=== PATIENT | female | born 1935 | race Caucasian/White ===

== ENCOUNTER 2018-06-17 18:34 | Emergency (ER) | payer OTHER, BC ==
--- NOTE | 2018-06-17 18:47 | PDOC ---
Rapid Medical Evaluation Time Seen by Provider: 06/17/18 18:40 Medical Evaluation: 06/17/18 18:40 I have performed a brief in-person evaluation of this patient. The patient presents with a chief complaint of: Hyperglycemia this am (400s) at home, reports no symptoms per pt. Usually does not check her BG at home per daughter, unclear why pt checked it today. Sent from for management. Has h/o IDDM, compliant w/ meds per pt, pulm HTN (on 2L home 02), HLD, CAD w/ stents. Denies h/o admission for DM or complications related to. PMD is at [facility] Pertinent physical exam findings:Stable I have ordered the following:labs The patient will proceed to the ED for further evaluation. Discharge Disposition - Diagnosis Hyperglycemia - Referrals - Patient Instructions - Post Discharge Activity
[2018-06-17 18:51] VITALS: BP 129/78; PULSE 59; TEMP 98.4; BMI 30.9
[2018-06-17 20:05] LABS: BASO % 1.3 % (0-2.0); EOS % 2.1 % (0-4.5); HEMATOCRIT 31.4 % (32.4-45.2); HEMOGLOBIN 10.9 GM/dL (10.7-15.3); LYMPH % 17.4 % (8-40); MCH 30.8 pg (25.7-33.7); MCHC 34.6 g/dl (32.0-36.0); MEAN CELL VOLUME 89.1 fl (80-96); MEAN PLT VOLUME 6.8 fl (7.5-11.1); MONO % 6.5 % (3.8-10.2); NEUT % 72.7 % (42.8-82.8); PLATELET COUNT 133 K/MM3 (134-434); RBC 3.52 M/mm3 (3.60-5.2); RDW 14.8 % (11.6-15.6)
[2018-06-17 20:39] LABS: ALBUMIN 3.9 g/dl (3.4-5.0); ANION GAP 10 MMOL/L (8-16); BILIRUBIN,TOTAL 0.8 mg/dL (0.2-1.0); BLOOD UREA NITROGEN 13 mg/dL (7-18); CALCIUM 9.6 mg/dL (8.5-10.1); CHLORIDE 98 mmol/L (98-107); CO2 30 mmol/L (21-32); CREATININE 1.2 mg/dL (0.55-1.3); GLUCOSE,RANDOM 279 mg/dL (74-106); POTASSIUM 3.4 mmol/L (3.5-5.1); SGOT/AST 24 U/L (15-37); SGPT/ALT 25 U/L (13-61); SODIUM 138 mmol/L (136-145); TOT PROT 7.5 g/dl (6.4-8.2)
[2018-06-17 20:40] LABS: ALK PHOS 128 U/L (45-117)
--- NOTE | 2018-06-17 21:26 | PDOC ---
Attending Attestation - Resident Resident Name: [email or web address] - ED Attending Attestation I have performed the following: I have examined & evaluated the patient, The case was reviewed & discussed with the resident, I agree w/resident's findings & plan, Exceptions are as noted - HPI HPI: 06/17/18 21:41 83y F hx of IDDM, persents with complaint of hyperglycemia. Per pt, she called her doctor for refill of insulin an dthey told her to check blood sugar and it was in the 400s and pt presented for evalutaion. pt notes she is otherwise asypmtmatic and denies any fever/chills, cp, sob, cough, abd pain, back pain, headache, dizziness, frequency, dysuria. Patient denies any complaints currently GENERAL: The patient is awake, alert, and fully oriented, Nontoxic - in no acute distress. HEAD: Normocephalic, atraumatic. EYES: extraocular movements intact, sclera anicteric, conjunctiva clear. ENT: Normal voice, Moist mucous membranes. NECK: Normal range of motion, supple LUNGS: Breath sounds equal, clear to auscultation bilaterally. No wheezes, no rhonchi, no rales. HEART: Regular rate and rhythm, normal S1 and S2 without murmur, rub or gallop. ABDOMEN: Soft, nontender, No guarding, no rebound. . No CVA tenderness EXTREMITIES: Normal range of motion, no edema. NEUROLOGICAL: No facial assymetry, Normal speech, moving all 4 extrmities spontaneously and symmetrically PSYCH: Normal mood, normal affect. SKIN: Warm, Dry, normal turgor, Patient's blood work was reviewed it is unremarkable her blood sugar is reasonable at 267 No clinical signs of DKA as pt is otherwise asymptmoatic and blood sugar is under control, will defer further workup. Will verify the patient's insulin and will refill the rx patient until she follow-up with a primary care doctor leigh is bedside and agrees with managemnt - Physicial Exam PE: 06/19/18 20:11 see above - Medical Decision Making 06/19/18 20:11 see above
[2018-06-17 21:41] LABS: URINE APPEARANCE SLCLOUDY; URINE BILIRUBIN NEGATIVE (<2.0 mg/dL); URINE COLOR YELLOW; URINE GLUCOSE (UA) 3+ (NEGATIVE); URINE KETONE NEGATIVE (NEGATIVE); URINE LEUK ESTERASE TRACE (NEGATIVE); URINE NITRITE NEGATIVE (NEGATIVE); URINE PROTEIN 1+ (NEGATIVE); URINE UROBILINOGEN NEGATIVE mg/dL (0.2-1.0)
[2018-06-17 21:42] LABS: EPI CELLS RARE /HPF (FEW); URINE HYALINE CAST 4 /lpf; URINE MUCUS RARE
--- NOTE | 2018-06-17 22:19 | PDOC ---
History of Present Illness - General Chief Complaint: Blood Sugar Problem Stated Complaint: ALTERED MENTAL STATE Time Seen by Provider: 06/17/18 18:40 - History of Present Illness Initial Comments: 06/17/18 22:37 83 yo F w a hx of IDDM, pulm HTN (on 2L home 02), HLD, CAD w/ stents was sent here by her pcp bc her blood sugar was 468. She measured her glucose at home after she ate lunch today. She is completely asymptomatic. She sates that she has not been good about taking her meds and following up with her diabetes doctors recently. She endorses polyuria but denies polydipsia. She has no abdominal pain She denies any recent fevers, chills, or infections. She denies any chest pain, SOB, or difficulty breathing. She denies any dysuria, frequency, or urgency. Past History - Past Medical History Allergies/Adverse Reactions: Allergies Allergy/AdvReac Type Severity Reaction Status Date / Time meperidine [From Demerol] Allergy Verified 06/17/18 18:44 Home Medications: Ambulatory Orders Insulin Lispro [Humalog Kwikpen U-100] 5 unit SQ TID 7 Days #1 [email or web address] Cardiac Disorders: Yes COPD: No Other medical history: 2 CARDIAC STENTS, PULMONARY HYPERTENSION ON OXYGEN 2L - Suicide/Smoking/Psychosocial Hx Smoking History: Never smoked Review of Systems - Review of Systems Comments:: 06/17/18 22:41 CONSTITUTIONAL: Absent: fever, chills, diaphoresis, generalized weakness, malaise, loss of appetite HEENT: Absent: rhinorrhea, nasal congestion, throat pain, throat swelling, difficulty swallowing, mouth swelling, ear pain, eye pain, visual Changes CARDIOVASCULAR: Absent: chest pain, syncope, palpitations, irregular heart rate, lightheadedness , peripheral edema RESPIRATORY: Absent: cough, shortness of breath, dyspnea with exertion, orthopnea, wheezing, stridor, hemoptysis GASTROINTESTINAL: Absent: abdominal pain, abdominal distension, nausea, vomiting, diarrhea, constipation, melena, hematochezia GENITOURINARY: Positive: polyuria Absent: dysuria, frequency, urgency, hesitancy, hematuria, flank pain, genital pain MUSCULOSKELETAL: Absent: myalgia, arthralgia, joint swelling SKIN: Absent: rash, itching, pallor HEMATOLOGIC/IMMUNOLOGIC: Absent: easy bleeding, easy bruising, lymphadenopathy, frequent infections ENDOCRINE: Absent: unexplained weight gain, unexplained weight loss, heat intolerance, cold intolerance NEUROLOGIC: Absent: headache, focal weakness or paresthesias, dizziness, unsteady gait, seizure, mental status changes, bladder or bowel incontinence PSYCHIATRIC: Absent: anxiety, depression, suicidal or homicidal ideation, hallucinations. 06/17/18 22:43 *Physical Exam - Vital Signs Last Vital Signs Temp Pulse Resp BP Pulse Ox 98.4 F 59 L 16 129/78 100 06/17/18 18:44 06/17/18 18:44 06/17/18 18:44 06/17/18 18:44 06/17/18 20:50 - Physical Exam Comments: 06/17/18 22:44 GENERAL: Well developed, well nourished. Awake and alert. No acute distress. HEENT: Normocephalic, atraumatic. PERRLA, EOMI. No conjunctival pallor. Sclera are non- icteric. Moist mucous membranes. Oropharynx is clear. NECK: Supple. Full ROM. No JVD. No thyromegaly. No lymphadenopathy. CARDIOVASCULAR: Regular rate and rhythm. No murmurs, rubs, or gallops. Distal pulses are 2+ and symmetric. PULMONARY: No evidence of respiratory distress. Lungs clear to auscultation bilaterally. No wheezing, rales or rhonchi. ABDOMINAL: Soft. Non-tender. Non-distended. No rebound or guarding. No organomegaly. Normoactive bowel sounds. MUSCULOSKELETAL Normal range of motion at all joints. No bony deformities or tenderness. No CVA tenderness. EXTREMITIES: No cyanosis. No clubbing. No edema. No calf tenderness. SKIN: Warm and dry. Normal capillary refill. No rashes. No jaundice. NEUROLOGICAL: Alert, awake, appropriate. Cranial nerves 2-12 intact. No deficits to light touch in face, upper extremities and lower extremities. No motor deficits in the in face, upper extremities and lower extremities. Normoreflexic in the upper and lower extremities. Normal speech. Toes are down-going bilaterally. Gait is normal without ataxia. PSYCHIATRIC: Cooperative. Good eye contact. Appropriate mood and affect. ED Treatment Course - LABORATORY CBC & Chemistry Diagram: 06/17/18 19:55 06/17/18 19:55 - ADDITIONAL ORDERS Additional order review: Laboratory Results 06/17/18 06/17/18 06/17/18 21:33 20:41 19:55 Sodium 138 Potassium 3.4 L Chloride 98 Carbon Dioxide 30 Anion Gap 10 BUN 13 Creatinine 1.2 Creat Clearance w eGFR 43.12 POC Glucometer [phone] Random Glucose 279 H Calcium 9.6 Total Bilirubin 0.8 AST 24 ALT 25 Alkaline Phosphatase 128 H Total Protein 7.5 Albumin 3.9 Urine Color Yellow Urine Appearance Slcloudy Urine pH 5.0 Ur Specific [place] 1.014 Urine Protein 1+ H Urine Glucose (UA) 3+ H Urine Ketones Negative Urine Blood 1+ H Urine Nitrite Negative Urine Bilirubin Negative Urine Urobilinogen Negative Ur Leukocyte Esterase Trace Urine WBC (Auto) 5 Urine RBC (Auto) 2 Ur Epithelial Cells Rare Hyaline Casts 4 Urine Mucus Rare 06/17/18 06/17/18 20:41 19:55 RBC 3.52 L MCV 89.1 MCHC 34.6 RDW 14.8 MPV 6.8 L Neutrophils % 72.7 Lymphocytes % 17.4 Monocytes % 6.5 Eosinophils % 2.1 Basophils % 1.3 POC Glucometer [phone] Medical Decision Making - Medical Decision Making 06/17/18 22:47 83 yo F w a hx of IDDM, pulm HTN (on 2L home ), HLD, CAD w/ stents was sent here by her pcp bc her blood sugar was 468. In the ED her POC was 268. She is completely asymptomatic. CBC, cmp, ua was unremarkable. no wbc elevation. no anion gap, no acidosis, no urinary ketones. Nothing to suggest DKA or HHNS. We refilled her humalog. She is going to follow up with her paste mixing supervisor on Wednesday. *DC/Admit/Observation/Transfer Diagnosis at time of Disposition: Hyperglycemia - Discharge Dispostion Disposition: HOME Condition at time of disposition: Improved Decision to Admit order: No - Prescriptions Prescriptions: Insulin Lispro [Humalog Kwikpen U-100] 5 unit SQ TID 7 Days #1 insuln.pen - Referrals Referrals: Francesco Marmolejo MD [Staff Physician] - - Patient Instructions Additional Instructions: You came into the ER because your sugar was high. It lowered to a normal level in the ED. Please goto your pharmacy and brain picker the insulin we sent there. Make sure you follow up with your paste mixing supervisor in the next 3 to 5 days to get better control of your sugar. Come back to the emergency room if you get a fever, have bad abdominal pain, start vomiting, have difficulty breathing or have any other concerns. Print Language: ESTONIAN - Post Discharge Activity
== END 2018-06-17 22:25 | disposition home or self-care (01) ==
LOC: JER 18:34
DX: E11.65 Type 2 diabetes mellitus with hyperglycemia (principal); I10 Essential (primary) hypertension; E78.5 Hyperlipidemia, unspecified; I25.10 Atherosclerotic heart disease of native coronary artery without angina pectoris; Z95.5 Presence of coronary angioplasty implant and graft
CPT/HCPCS: 36415; 80053; 81003; 81015; 82962; 85025; 99282-25

== ENCOUNTER 2021-10-26 22:38 | Inpatient (IN) | payer OTHER ==
[2021-10-26 23:27] LABS: BASO % 1.2 % (0-2.0); EOS % 2.2 % (0-4.5); HEMATOCRIT 30.1 % (32.4-45.2); MCH 28.2 pg (25.7-33.7); MCHC 33.3 g/dl (32.0-36.0); MEAN CELL VOLUME 84.5 fl (80-96); MEAN PLT VOLUME 6.8 fl (7.5-11.1); MONO % 8.1 % (3.8-10.2); NEUT % 68.5 % (42.8-82.8); PLATELET COUNT 131 10^3/uL (134-434); RBC 3.56 M/mm3 (3.60-5.2); RDW 16.5 % (11.6-15.6); WHITE BLOOD COUNT 4.2 K/mm3 (4.0-10.0)
[2021-10-26 23:34] LABS: INR 1.17 (0.83-1.09); PROTHROMBIN TIME (PATIENT) 13.5 SEC (9.7-13.0)
[2021-10-26 23:36] LABS: ACTIVATED PTT 29.5 SECONDS (25.2-36.5)
[2021-10-26 23:50] LABS: ALBUMIN 3.7 g/dl (3.4-5.0); CALCIUM 9.6 mg/dL (8.5-10.1)
[2021-10-26 23:54] LABS: CREATININE 1.3 mg/dL (0.55-1.3)
[2021-10-26 23:55] LABS: TOT PROT 6.7 g/dl (6.4-8.2)
[2021-10-27 00:09] LABS: N-TERMINAL BNP 689.6 pg/ml (5-450)
[2021-10-27 02:15] LABS: EPI CELLS 13 /uL (0-25.1); HYALINE CASTS 1 /uL (0-3.1); PH,URINE 5.5 (5.0-8.0); URINE APPEARANCE CLEAR; URINE BACTERIA 259 /uL (0-1359); URINE BILIRUBIN NEGATIVE (NEGATIVE); URINE COLOR YELLOW; URINE GLUCOSE (UA) NEGATIVE (NEGATIVE); URINE KETONE NEGATIVE (NEGATIVE); URINE LEUK ESTERASE TRACE (NEGATIVE); URINE NITRITE NEGATIVE (NEGATIVE); URINE PROTEIN 1+ (NEGATIVE); URINE RBC 13 /uL (0-23.9); URINE WBC 46 /uL (0-25.8)
[2021-10-27] MEDS ORDERED: CEFTRIAXONE 1 GM in DEXTROSE 5%-WATER - 100 ML IVPB ONE (03:43)
[2021-10-27] MEDS ORDERED: CEFTRIAXONE 1 GM/50 ML BAG ONE (03:52)
[2021-10-27] MEDS ORDERED: HEPARIN NA (PORCINE) 5,000 UNITS/ML 1ML VIAL ONE (06:06)
[2021-10-27] MEDS: HEPARIN NA (PORCINE) 5,000 UNITS/ML 1ML VIAL SQ SCH ×3 (06:13→21:32)
[2021-10-27] MEDS ORDERED: FUROSEMIDE 40 MG/4 ML INJECTABLE VIAL IVPUSH ONE ×2 (06:40→07:00)
[2021-10-27] MEDS ORDERED: metFORMIN HCL 500 MG TABLET (FP) ONE (07:35)
[2021-10-27] MEDS ORDERED: FUROSEMIDE 40 MG/4 ML INJECTABLE VIAL ONE (07:36)
[2021-10-27 08:02] LABS: HEMOGLOBIN 9.6 GM/dL (10.7-15.3); MCH 28.2 pg (25.7-33.7); MCHC 33.3 g/dl (32.0-36.0); MEAN CELL VOLUME 84.8 fl (80-96); MEAN PLT VOLUME 7.4 fl (7.5-11.1); PLATELET COUNT 112 10^3/uL (134-434); RBC 3.41 M/mm3 (3.60-5.2); RDW 16.1 % (11.6-15.6); WHITE BLOOD COUNT 3.2 K/mm3 (4.0-10.0)
[2021-10-27 08:25] LABS: CALCIUM 9.7 mg/dL (8.5-10.1)
[2021-10-27 08:26] LABS: BLOOD UREA NITROGEN 15.5 mg/dL (7-18)
[2021-10-27 08:29] LABS: CREATININE 1.2 mg/dL (0.55-1.3)
[2021-10-27] MEDS ORDERED: CARVEDILOL 3.125 MG TABLET (FP) ONE (08:50)
[2021-10-27] MEDS ORDERED: ASPIRIN COATED 81 MG TABLET.EC ONE (08:50)
[2021-10-27] MEDS ORDERED: dilTIAZem HCL 60 MG TABLET ONE (08:50)
[2021-10-27] MEDS ORDERED: FAMOTIDINE 20 MG TABLET ONE (08:50)
[2021-10-27] MEDS ORDERED: SPIRONOLACTONE 25 MG TABLET ONE (08:51)
[2021-10-27] MEDS ORDERED: PANTOPRAZOLE SODIUM 40 MG VIAL ONE (10:15)
[2021-10-27] MEDS: PANTOPRAZOLE SODIUM 40 MG VIAL IVPUSH SCH (10:30)
[2021-10-27] MEDS: ASPIRIN COATED 81 MG TABLET.EC PO SCH (10:31)
[2021-10-27] MEDS: CARVEDILOL 6.25 MG TABLET (FP) PO SCH ×2 (10:31→21:32)
[2021-10-27] MEDS: FAMOTIDINE 20 MG TABLET PO SCH (10:31)
[2021-10-27] MEDS: INSULIN (LEVEMIR) 100 UNITS/ML UNITS SQ SCH (10:31)
[2021-10-27] MEDS: SPIRONOLACTONE 25 MG TABLET PO SCH (10:31)
[2021-10-27] MEDS: INSULIN (NOVOLOG) ASPART 100 UNITS/ML 10ML VIAL SQ SCH ×3 (10:31→17:06)
[2021-10-27] MEDS: SILDENAFIL CITRATE 20 MG TAB PO SCH ×2 (14:29→21:32)
[2021-10-27 16:49] VITALS: BMI 27.1
[2021-10-27] MEDS: ROSUVASTATIN CA 10 MG TABLET PO SCH (21:32)
[2021-10-28] MEDS: HEPARIN NA (PORCINE) 5,000 UNITS/ML 1ML VIAL SQ SCH ×3 (06:22→21:41)
[2021-10-28] MEDS: SILDENAFIL CITRATE 20 MG TAB PO SCH ×3 (06:22→21:41)
[2021-10-28] MEDS: INSULIN (LEVEMIR) 100 UNITS/ML UNITS SQ SCH (06:31)
[2021-10-28] MEDS: INSULIN (NOVOLOG) ASPART 100 UNITS/ML 10ML VIAL SQ SCH ×3 (06:32→16:08)
[2021-10-28] MEDS ORDERED: CEFTRIAXONE 1 GM in DEXTROSE 5%-WATER - 50 ML IVPB SCH (10:00)
[2021-10-28] MEDS: FUROSEMIDE 40 MG/4 ML INJECTABLE VIAL IVPUSH SCH (10:30)
[2021-10-28] MEDS: SPIRONOLACTONE 25 MG TABLET PO SCH (10:30)
[2021-10-28] MEDS: FAMOTIDINE 20 MG TABLET PO SCH (10:30)
[2021-10-28] MEDS: CARVEDILOL 6.25 MG TABLET (FP) PO SCH ×2 (10:31→21:40)
[2021-10-28] MEDS: PANTOPRAZOLE SODIUM 40 MG VIAL IVPUSH SCH (10:31)
[2021-10-28] MEDS: ASPIRIN COATED 81 MG TABLET.EC PO SCH (10:31)
[2021-10-28] MEDS: CEPHALEXIN MONOHYDRATE 500 MG CAPSULE (UD) PO SCH ×2 (10:31→21:40)
[2021-10-28 11:44] LABS: BASO % 0.9 % (0-2.0); EOS % 2.5 % (0-4.5); HEMATOCRIT 29.5 % (32.4-45.2); HEMOGLOBIN 10.1 GM/dL (10.7-15.3); MCH 28.8 pg (25.7-33.7); MCHC 34.1 g/dl (32.0-36.0); MEAN CELL VOLUME 84.5 fl (80-96); MEAN PLT VOLUME 7.1 fl (7.5-11.1); MONO % 8.9 % (3.8-10.2); NEUT % 69.7 % (42.8-82.8); PLATELET COUNT 114 10^3/uL (134-434); RBC 3.49 M/mm3 (3.60-5.2); RDW 16.2 % (11.6-15.6); WHITE BLOOD COUNT 3.6 K/mm3 (4.0-10.0)
[2021-10-28 12:23] LABS: ALBUMIN 3.5 g/dl (3.4-5.0); BILIRUBIN,TOTAL 0.8 mg/dL (0.2-1); BLOOD UREA NITROGEN 18.6 mg/dL (7-18); CALCIUM 9.3 mg/dL (8.5-10.1); CREATININE 1.3 mg/dL (0.55-1.3); TOT PROT 6.6 g/dl (6.4-8.2)
[2021-10-28] MEDS: ROSUVASTATIN CA 10 MG TABLET PO SCH (21:40)
[2021-10-29] MEDS: HEPARIN NA (PORCINE) 5,000 UNITS/ML 1ML VIAL SQ SCH ×2 (05:45→13:39)
[2021-10-29] MEDS: SILDENAFIL CITRATE 20 MG TAB PO SCH ×2 (05:45→13:39)
[2021-10-29] MEDS: INSULIN (NOVOLOG) ASPART 100 UNITS/ML 10ML VIAL SQ SCH ×3 (06:01→17:30)
[2021-10-29] MEDS: INSULIN (LEVEMIR) 100 UNITS/ML UNITS SQ SCH (06:01)
[2021-10-29 08:35] LABS: HEMATOCRIT 31.6 % (32.4-45.2); HEMOGLOBIN 10.5 GM/dL (10.7-15.3); MCH 28.3 pg (25.7-33.7); MCHC 33.3 g/dl (32.0-36.0); MEAN PLT VOLUME 7.2 fl (7.5-11.1); PLATELET COUNT 136 10^3/uL (134-434); RBC 3.72 M/mm3 (3.60-5.2); RDW 16.5 % (11.6-15.6); WHITE BLOOD COUNT 3.6 K/mm3 (4.0-10.0)
[2021-10-29 08:55] LABS: BLOOD UREA NITROGEN 18.8 mg/dL (7-18); CALCIUM 9.5 mg/dL (8.5-10.1)
[2021-10-29 08:59] LABS: CREATININE 1.3 mg/dL (0.55-1.3)
[2021-10-29] MEDS: FAMOTIDINE 20 MG TABLET PO SCH (10:01)
[2021-10-29] MEDS: SPIRONOLACTONE 25 MG TABLET PO SCH (10:01)
[2021-10-29] MEDS: ASPIRIN COATED 81 MG TABLET.EC PO SCH (10:01)
[2021-10-29] MEDS: CARVEDILOL 6.25 MG TABLET (FP) PO SCH (10:02)
[2021-10-29] MEDS: CEPHALEXIN MONOHYDRATE 500 MG CAPSULE (UD) PO SCH (10:02)
[2021-10-29] MEDS: FUROSEMIDE 40 MG/4 ML INJECTABLE VIAL IVPUSH SCH (10:10)
[2021-10-29] MEDS: PANTOPRAZOLE SODIUM 40 MG VIAL IVPUSH SCH (10:10)
[2021-10-29] MEDS ORDERED: POTASSIUM CHLORIDE TABS 20 MEQ TABLET.ER (FP) PO ONE (10:43)
[2021-10-29] MEDS ORDERED: FUROSEMIDE 40 MG TABLET (FP) PO ONE (11:05)
[2021-10-29 14:42] VITALS: TEMP 98.1
[2021-10-29 14:58] VITALS: BP 108/47; PULSE 73
== END 2021-10-29 18:00 | disposition home or self-care (01) | DRG 291 ==
LOC: JER 22:38 → JERBED 10-27 00:14 → J6S 10-27 12:01
PROVIDERS: ADMIT Internal Medicine
DX: I11.0 Hypertensive heart disease with heart failure (principal); I50.33 Acute on chronic diastolic (congestive) heart failure; D61.818 Other pancytopenia; N39.0 Urinary tract infection, site not specified; I27.20 Pulmonary hypertension, unspecified; K21.9 Gastro-esophageal reflux disease without esophagitis; E78.5 Hyperlipidemia, unspecified; F03.90 Unspecified dementia, unspecified severity, without behavioral disturbance, psychotic disturbance, mood disturbance, and anxiety; I44.0 Atrioventricular block, first degree; R62.7 Adult failure to thrive; Z68.27 Body mass index [BMI] 27.0-27.9, adult; E11.65 Type 2 diabetes mellitus with hyperglycemia
CPT/HCPCS: 36415; 71045-TC-FY; 80048; 80053; 81003; 82550; 82607; 82962; 83880; 84443; 84484; 85025; 85027; 85610; 85730; 86780; 86850; 86870; 86900; 86901; 86902; 87086; 93005; 93010; 93306-TC; 97116-GP; 97162-GP; 99285-25; C9803; J1644; U0003; U0005

== ENCOUNTER 2022-01-27 05:33 | Inpatient (IN) | payer OTHER ==
[2022-01-27 05:43] VITALS: BMI 25.7
[2022-01-27 07:24] LABS: BASO % 0.8 % (0-2.0); EOS % 5.4 % (0-4.5); HEMATOCRIT 28.3 % (32.4-45.2); HEMOGLOBIN 9.3 GM/dL (10.7-15.3); LYMPH % 19.4 % (8-40); MCH 28.2 pg (25.7-33.7); MCHC 32.7 g/dl (32.0-36.0); MEAN CELL VOLUME 86.2 fl (80-96); MEAN PLT VOLUME 7.3 fl (7.5-11.1); MONO % 7.7 % (3.8-10.2); NEUT % 66.7 % (42.8-82.8); PLATELET COUNT 131 10^3/uL (134-434); RBC 3.28 M/mm3 (3.60-5.2); RDW 15.5 % (11.6-15.6); WHITE BLOOD COUNT 3.2 K/mm3 (4.0-10.0)
[2022-01-27 07:50] LABS: CHLORIDE 105 mmol/L (98-107); SODIUM 144 mmol/L (136-145)
[2022-01-27] MEDS ORDERED: POTASSIUM CHLORIDE TABS 20 MEQ TABLET.ER (FP) PO ONE ×2 (07:51→08:01)
[2022-01-27 07:52] LABS: ALBUMIN 2.9 g/dl (3.4-5.0); ANION GAP 7 MMOL/L (8-16); BLOOD UREA NITROGEN 8.1 mg/dL (7-18); CO2 32 mmol/L (21-32); GLUCOSE,RANDOM 96 mg/dL (74-106); MAGNESIUM 2.2 mg/dL (1.8-2.4)
[2022-01-27 07:55] LABS: CREATININE 0.7 mg/dL (0.55-1.3); SGOT/AST 22 U/L (15-37); SGPT/ALT 13 U/L (13-61)
[2022-01-27 07:57] LABS: BILIRUBIN,TOTAL 0.9 mg/dL (0.2-1)
[2022-01-27 07:58] LABS: ALK PHOS 159 U/L (45-117)
[2022-01-27 08:00] LABS: N-TERMINAL BNP 1752.3 pg/ml (5-450)
[2022-01-27] MEDS ORDERED: ASPIRIN 81 MG CHEWABLE TABLETS PO ONE (08:10)
[2022-01-27] MEDS ORDERED: FUROSEMIDE 40 MG/4 ML INJECTABLE VIAL IVPUSH ONE (08:12)
[2022-01-27] MEDS ORDERED: ASPIRIN 81 MG CHEWABLE TABLETS ONE (08:23)
[2022-01-27] MEDS ORDERED: FUROSEMIDE 40 MG/4 ML INJECTABLE VIAL ONE (08:23)
[2022-01-27 08:50] LABS: EPI CELLS >36 /uL (0-25.1); HYALINE CASTS 2 /uL (0-3.1); PH,URINE 5.5 (5.0-8.0); URINE APPEARANCE CLOUDY; URINE BACTERIA 349 /uL (0-1359); URINE BILIRUBIN 1+ (NEGATIVE); URINE COLOR DK YELLOW; URINE GLUCOSE (UA) NEGATIVE (NEGATIVE); URINE KETONE TRACE (NEGATIVE); URINE LEUK ESTERASE NEGATIVE (NEGATIVE); URINE NITRITE NEGATIVE (NEGATIVE); URINE PROTEIN 2+ (NEGATIVE); URINE RBC 29 /uL (0-23.9); URINE UROBILINOGEN 4.0 E.U/dl mg/dL (0.2-1.0); URINE WBC 29 /uL (0-25.8)
[2022-01-27] MEDS: INSULIN SLIDING SCALE (NOVOLOG) 1 VIAL SQ SCH ×3 (11:21→22:49)
[2022-01-27] MEDS: SILDENAFIL CITRATE 20 MG TAB PO SCH ×2 (14:46→22:33)
[2022-01-27] MEDS: ROSUVASTATIN CA 10 MG TABLET PO SCH (22:33)
[2022-01-27] MEDS: CARVEDILOL 6.25 MG TABLET (FP) PO SCH (22:33)
[2022-01-28] MEDS: SILDENAFIL CITRATE 20 MG TAB PO SCH ×4 (06:22→22:47)
[2022-01-28] MEDS: INSULIN SLIDING SCALE (NOVOLOG) 1 VIAL SQ SCH ×4 (06:27→22:50)
[2022-01-28 07:36] LABS: HEMATOCRIT 27.6 % (32.4-45.2); HEMOGLOBIN 9.2 GM/dL (10.7-15.3); MCH 28.6 pg (25.7-33.7); MCHC 33.2 g/dl (32.0-36.0); MEAN PLT VOLUME 7.2 fl (7.5-11.1); PLATELET COUNT 119 10^3/uL (134-434); RBC 3.21 M/mm3 (3.60-5.2); RDW 15.3 % (11.6-15.6); WHITE BLOOD COUNT 2.9 K/mm3 (4.0-10.0)
[2022-01-28 08:01] LABS: ALBUMIN 2.9 g/dl (3.4-5.0); BLOOD UREA NITROGEN 8.7 mg/dL (7-18); MAGNESIUM 1.9 mg/dL (1.8-2.4)
[2022-01-28 08:04] LABS: CREATININE 0.7 mg/dL (0.55-1.3)
[2022-01-28 08:06] LABS: BILIRUBIN,TOTAL 1.1 mg/dL (0.2-1); TOT PROT 5.6 g/dl (6.4-8.2)
[2022-01-28] MEDS ORDERED: PATIENT'S OWN MEDICATION (NON-FORMULARY) (Fluticasone Propionate [Flovent Diskus] 50 MCG B IH SCH (10:00)
[2022-01-28] MEDS: ASPIRIN COATED 81 MG TABLET.EC PO SCH (10:10)
[2022-01-28] MEDS: SPIRONOLACTONE 25 MG TABLET PO SCH (10:10)
[2022-01-28] MEDS: CARVEDILOL 6.25 MG TABLET (FP) PO SCH ×2 (10:10→22:47)
[2022-01-28] MEDS: POTASSIUM CHLORIDE TABS 10 MEQ TABLET.ER (FP) PO SCH (10:10)
[2022-01-28] MEDS: FAMOTIDINE 20 MG TABLET PO SCH (10:11)
[2022-01-28] MEDS: ENOXAPARIN NA (PORCINE) 40 MG/0.4 ML DISP.SYRIN SQ SCH (10:11)
[2022-01-28] MEDS: FUROSEMIDE 40 MG/4 ML INJECTABLE VIAL IVPUSH SCH (10:11)
[2022-01-28] MEDS ORDERED: PIPERACILLIN/TAZOB 3.375 GM 3.375 GM in DEXTROSE 5%-WATER - 50 ML IVPB ONE (10:33)
[2022-01-28] MEDS ORDERED: PIPERACILLIN/TAZOBACTAM 3.375 GM VIAL IVPB ONE (11:34)
[2022-01-28] MEDS ORDERED: DEXTROSE 5%-WATER - 50 ML IVPB ONE (11:35)
[2022-01-28] MEDS ORDERED: ONDANSETRON 4 MG/2 ML VIAL IVPUSH ONE (17:15)
[2022-01-28] MEDS: ROSUVASTATIN CA 10 MG TABLET PO SCH (22:47)
[2022-01-29] MEDS: SILDENAFIL CITRATE 20 MG TAB PO SCH ×3 (05:22→22:15)
[2022-01-29] MEDS: INSULIN SLIDING SCALE (NOVOLOG) 1 VIAL SQ SCH ×4 (06:39→22:16)
[2022-01-29 08:14] LABS: BASO % 0.9 % (0-2.0); EOS % 5.8 % (0-4.5); HEMATOCRIT 27.7 % (32.4-45.2); HEMOGLOBIN 9.2 GM/dL (10.7-15.3); LYMPH % 21.4 % (8-40); MCH 28.3 pg (25.7-33.7); MCHC 33.1 g/dl (32.0-36.0); MEAN CELL VOLUME 85.3 fl (80-96); MEAN PLT VOLUME 7.3 fl (7.5-11.1); NEUT % 66.9 % (42.8-82.8); PLATELET COUNT 122 10^3/uL (134-434); RBC 3.25 M/mm3 (3.60-5.2); RDW 15.5 % (11.6-15.6); WHITE BLOOD COUNT 2.6 K/mm3 (4.0-10.0)
[2022-01-29 08:25] LABS: ALBUMIN 2.8 g/dl (3.4-5.0); BLOOD UREA NITROGEN 10.3 mg/dL (7-18); CALCIUM 8.4 mg/dL (8.5-10.1); MAGNESIUM 1.9 mg/dL (1.8-2.4)
[2022-01-29 08:28] LABS: CREATININE 0.9 mg/dL (0.55-1.3)
[2022-01-29 08:29] LABS: BILIRUBIN,TOTAL 1.3 mg/dL (0.2-1); TOT PROT 5.6 g/dl (6.4-8.2)
[2022-01-29] MEDS: ASPIRIN COATED 81 MG TABLET.EC PO SCH (09:55)
[2022-01-29] MEDS: POTASSIUM CHLORIDE TABS 10 MEQ TABLET.ER (FP) PO SCH (09:55)
[2022-01-29] MEDS: SPIRONOLACTONE 25 MG TABLET PO SCH (09:55)
[2022-01-29] MEDS: FUROSEMIDE 40 MG/4 ML INJECTABLE VIAL IVPUSH SCH (09:55)
[2022-01-29] MEDS: CARVEDILOL 6.25 MG TABLET (FP) PO SCH ×2 (09:55→22:15)
[2022-01-29] MEDS: ENOXAPARIN NA (PORCINE) 40 MG/0.4 ML DISP.SYRIN SQ SCH (09:55)
[2022-01-29] MEDS: FAMOTIDINE 20 MG TABLET PO SCH (09:55)
[2022-01-29] MEDS ORDERED: POTASSIUM CHLORIDE TABS 20 MEQ TABLET.ER (FP) PO ONE (18:54)
[2022-01-29] MEDS: ROSUVASTATIN CA 10 MG TABLET PO SCH (22:15)
[2022-01-30] MEDS: SILDENAFIL CITRATE 20 MG TAB PO SCH ×3 (06:01→21:21)
[2022-01-30] MEDS: INSULIN SLIDING SCALE (NOVOLOG) 1 VIAL SQ SCH ×4 (06:01→21:20)
[2022-01-30 09:08] LABS: HEMATOCRIT 27.6 % (32.4-45.2); HEMOGLOBIN 9.2 GM/dL (10.7-15.3); MCH 28.5 pg (25.7-33.7); MCHC 33.4 g/dl (32.0-36.0); MEAN CELL VOLUME 85.4 fl (80-96); MEAN PLT VOLUME 7.4 fl (7.5-11.1); PLATELET COUNT 112 10^3/uL (134-434); RBC 3.23 M/mm3 (3.60-5.2); RDW 15.2 % (11.6-15.6); WHITE BLOOD COUNT 2.7 K/mm3 (4.0-10.0)
[2022-01-30 09:23] LABS: CALCIUM 8.5 mg/dL (8.5-10.1)
[2022-01-30 09:24] LABS: ALBUMIN 2.9 g/dl (3.4-5.0); BLOOD UREA NITROGEN 13.2 mg/dL (7-18); MAGNESIUM 1.9 mg/dL (1.8-2.4)
[2022-01-30 09:27] LABS: CREATININE 0.9 mg/dL (0.55-1.3)
[2022-01-30 09:28] LABS: TOT PROT 5.7 g/dl (6.4-8.2)
[2022-01-30] MEDS: ASPIRIN COATED 81 MG TABLET.EC PO SCH (10:06)
[2022-01-30] MEDS: SPIRONOLACTONE 25 MG TABLET PO SCH (10:06)
[2022-01-30] MEDS: CARVEDILOL 6.25 MG TABLET (FP) PO SCH ×2 (10:06→21:21)
[2022-01-30] MEDS: FAMOTIDINE 20 MG TABLET PO SCH (10:06)
[2022-01-30] MEDS: FUROSEMIDE 40 MG/4 ML INJECTABLE VIAL IVPUSH SCH (10:06)
[2022-01-30] MEDS: POTASSIUM CHLORIDE TABS 10 MEQ TABLET.ER (FP) PO SCH (10:06)
[2022-01-30] MEDS: ENOXAPARIN NA (PORCINE) 40 MG/0.4 ML DISP.SYRIN SQ SCH (10:06)
[2022-01-30 11:25] LABS: ANISOCYTOSIS 0; MACROCYTOSIS 0; OVALOCYTE 1+
[2022-01-30] MEDS: ROSUVASTATIN CA 10 MG TABLET PO SCH (21:21)
[2022-01-31] MEDS: INSULIN SLIDING SCALE (NOVOLOG) 1 VIAL SQ SCH ×4 (06:01→21:33)
[2022-01-31 08:11] LABS: HEMATOCRIT 29.4 % (32.4-45.2); HEMOGLOBIN 9.7 GM/dL (10.7-15.3); MCH 28.1 pg (25.7-33.7); MCHC 32.9 g/dl (32.0-36.0); MEAN CELL VOLUME 85.6 fl (80-96); MEAN PLT VOLUME 7.4 fl (7.5-11.1); PLATELET COUNT 128 10^3/uL (134-434); RBC 3.43 M/mm3 (3.60-5.2); RDW 15.5 % (11.6-15.6); WHITE BLOOD COUNT 2.8 K/mm3 (4.0-10.0)
[2022-01-31] MEDS: FUROSEMIDE 40 MG/4 ML INJECTABLE VIAL IVPUSH SCH (11:20)
[2022-01-31] MEDS: ENOXAPARIN NA (PORCINE) 40 MG/0.4 ML DISP.SYRIN SQ SCH (11:20)
[2022-01-31] MEDS: FAMOTIDINE 20 MG TABLET PO SCH (11:20)
[2022-01-31] MEDS: POTASSIUM CHLORIDE TABS 10 MEQ TABLET.ER (FP) PO SCH (11:20)
[2022-01-31] MEDS: SPIRONOLACTONE 25 MG TABLET PO SCH (11:20)
[2022-01-31] MEDS: CARVEDILOL 6.25 MG TABLET (FP) PO SCH ×2 (11:20→21:29)
[2022-01-31] MEDS: ASPIRIN COATED 81 MG TABLET.EC PO SCH (11:20)
[2022-01-31 12:12] LABS: CALCIUM 9.1 mg/dL (8.5-10.1)
[2022-01-31 12:13] LABS: BLOOD UREA NITROGEN 12.1 mg/dL (7-18)
[2022-01-31] MEDS: SILDENAFIL CITRATE 20 MG TAB PO SCH ×3 (15:00→21:29)
[2022-01-31] MEDS: ROSUVASTATIN CA 10 MG TABLET PO SCH (21:29)
[2022-01-31] MEDS ORDERED: BENZOCAINE/MENTH/CETYLPYRD CL 1 EACH LOZENGE MM ONE (21:58)
[2022-02-01] MEDS: SILDENAFIL CITRATE 20 MG TAB PO SCH ×3 (05:56→22:09)
[2022-02-01] MEDS: INSULIN SLIDING SCALE (NOVOLOG) 1 VIAL SQ SCH ×4 (06:03→22:17)
[2022-02-01] MEDS: ENOXAPARIN NA (PORCINE) 40 MG/0.4 ML DISP.SYRIN SQ SCH (09:42)
[2022-02-01] MEDS: FAMOTIDINE 20 MG TABLET PO SCH (09:43)
[2022-02-01] MEDS: POTASSIUM CHLORIDE TABS 10 MEQ TABLET.ER (FP) PO SCH (09:43)
[2022-02-01] MEDS: ASPIRIN COATED 81 MG TABLET.EC PO SCH (09:43)
[2022-02-01] MEDS: SPIRONOLACTONE 25 MG TABLET PO SCH (09:43)
[2022-02-01] MEDS: FUROSEMIDE 40 MG/4 ML INJECTABLE VIAL IVPUSH SCH (09:43)
[2022-02-01] MEDS: CARVEDILOL 6.25 MG TABLET (FP) PO SCH ×2 (11:40→22:09)
[2022-02-01] MEDS: ROSUVASTATIN CA 10 MG TABLET PO SCH (22:09)
[2022-02-01] MEDS: INSULIN (LEVEMIR) 100 UNITS/ML UNITS SQ SCH (22:09)
[2022-02-02] MEDS: SILDENAFIL CITRATE 20 MG TAB PO SCH ×3 (05:44→21:12)
[2022-02-02] MEDS: INSULIN SLIDING SCALE (NOVOLOG) 1 VIAL SQ SCH ×4 (06:12→21:13)
[2022-02-02] MEDS: INSULIN (LEVEMIR) 100 UNITS/ML UNITS SQ SCH ×2 (06:12→21:13)
[2022-02-02 07:58] LABS: BASO % 0.9 % (0-2.0); EOS % 4.6 % (0-4.5); HEMATOCRIT 30.1 % (32.4-45.2); LYMPH % 22.6 % (8-40); MCH 28.1 pg (25.7-33.7); MCHC 33.1 g/dl (32.0-36.0); MEAN CELL VOLUME 84.7 fl (80-96); MEAN PLT VOLUME 7.4 fl (7.5-11.1); MONO % 8.1 % (3.8-10.2); NEUT % 63.8 % (42.8-82.8); PLATELET COUNT 133 10^3/uL (134-434); RBC 3.55 M/mm3 (3.60-5.2); RDW 15.4 % (11.6-15.6); WHITE BLOOD COUNT 3.3 K/mm3 (4.0-10.0)
[2022-02-02 08:22] LABS: CALCIUM 9.1 mg/dL (8.5-10.1)
[2022-02-02 08:26] LABS: CREATININE 1.1 mg/dL (0.55-1.3)
[2022-02-02 08:28] LABS: BILIRUBIN,TOTAL 1.4 mg/dL (0.2-1); TOT PROT 6.2 g/dl (6.4-8.2)
[2022-02-02] MEDS: POTASSIUM CHLORIDE TABS 10 MEQ TABLET.ER (FP) PO SCH (09:53)
[2022-02-02] MEDS: FUROSEMIDE 40 MG/4 ML INJECTABLE VIAL IVPUSH SCH (09:53)
[2022-02-02] MEDS: ENOXAPARIN NA (PORCINE) 40 MG/0.4 ML DISP.SYRIN SQ SCH (09:53)
[2022-02-02] MEDS: CARVEDILOL 6.25 MG TABLET (FP) PO SCH ×2 (09:54→21:13)
[2022-02-02] MEDS: ASPIRIN COATED 81 MG TABLET.EC PO SCH (09:54)
[2022-02-02] MEDS: SPIRONOLACTONE 25 MG TABLET PO SCH (09:54)
[2022-02-02] MEDS: FAMOTIDINE 20 MG TABLET PO SCH (09:54)
[2022-02-02] MEDS: ROSUVASTATIN CA 10 MG TABLET PO SCH (21:12)
[2022-02-03] MEDS: SILDENAFIL CITRATE 20 MG TAB PO SCH ×3 (06:36→21:18)
[2022-02-03] MEDS: INSULIN (LEVEMIR) 100 UNITS/ML UNITS SQ SCH ×2 (06:36→21:19)
[2022-02-03] MEDS: INSULIN SLIDING SCALE (NOVOLOG) 1 VIAL SQ SCH ×4 (06:37→21:19)
[2022-02-03 08:12] LABS: HEMATOCRIT 31.2 % (32.4-45.2); HEMOGLOBIN 10.3 GM/dL (10.7-15.3); LYMPH % 23.1 % (8-40); MCH 28.1 pg (25.7-33.7); MCHC 32.9 g/dl (32.0-36.0); MEAN CELL VOLUME 85.2 fl (80-96); MEAN PLT VOLUME 7.4 fl (7.5-11.1); MONO % 8.9 % (3.8-10.2); PLATELET COUNT 148 10^3/uL (134-434); RBC 3.66 M/mm3 (3.60-5.2); RDW 15.2 % (11.6-15.6); WHITE BLOOD COUNT 3.7 K/mm3 (4.0-10.0)
[2022-02-03 08:30] LABS: ALBUMIN 3.2 g/dl (3.4-5.0); CALCIUM 9.4 mg/dL (8.5-10.1)
[2022-02-03 08:31] LABS: BLOOD UREA NITROGEN 15.9 mg/dL (7-18)
[2022-02-03 08:34] LABS: CREATININE 1.1 mg/dL (0.55-1.3)
[2022-02-03 08:35] LABS: BILIRUBIN,TOTAL 1.1 mg/dL (0.2-1); TOT PROT 6.3 g/dl (6.4-8.2)
[2022-02-03] MEDS: POTASSIUM CHLORIDE TABS 10 MEQ TABLET.ER (FP) PO SCH (09:40)
[2022-02-03] MEDS: ASPIRIN COATED 81 MG TABLET.EC PO SCH (09:40)
[2022-02-03] MEDS: SPIRONOLACTONE 25 MG TABLET PO SCH (09:40)
[2022-02-03] MEDS: FAMOTIDINE 20 MG TABLET PO SCH (09:40)
[2022-02-03] MEDS: CARVEDILOL 6.25 MG TABLET (FP) PO SCH ×2 (09:40→21:18)
[2022-02-03] MEDS: ENOXAPARIN NA (PORCINE) 40 MG/0.4 ML DISP.SYRIN SQ SCH (09:40)
[2022-02-03] MEDS: FUROSEMIDE 40 MG/4 ML INJECTABLE VIAL IVPUSH SCH (09:41)
[2022-02-03 18:09] LABS: FREE KAPPA,SERUM 78.5 mg/L (3.3-19.4)
[2022-02-03] MEDS: ROSUVASTATIN CA 10 MG TABLET PO SCH (21:18)
[2022-02-04] MEDS: SILDENAFIL CITRATE 20 MG TAB PO SCH ×3 (06:14→21:40)
[2022-02-04] MEDS: INSULIN (LEVEMIR) 100 UNITS/ML UNITS SQ SCH ×2 (06:14→21:47)
[2022-02-04] MEDS: INSULIN SLIDING SCALE (NOVOLOG) 1 VIAL SQ SCH ×4 (06:15→21:45)
[2022-02-04 08:07] LABS: EOS % 4.7 % (0-4.5); HEMATOCRIT 32.9 % (32.4-45.2); HEMOGLOBIN 10.9 GM/dL (10.7-15.3); LYMPH % 20.8 % (8-40); MCH 28.1 pg (25.7-33.7); MCHC 33.2 g/dl (32.0-36.0); MEAN CELL VOLUME 84.8 fl (80-96); MEAN PLT VOLUME 7.4 fl (7.5-11.1); MONO % 9.1 % (3.8-10.2); NEUT % 64.4 % (42.8-82.8); PLATELET COUNT 164 10^3/uL (134-434); RBC 3.87 M/mm3 (3.60-5.2); RDW 15.5 % (11.6-15.6); WHITE BLOOD COUNT 3.9 K/mm3 (4.0-10.0)
[2022-02-04 08:28] LABS: CALCIUM 9.8 mg/dL (8.5-10.1)
[2022-02-04 08:29] LABS: BLOOD UREA NITROGEN 19.6 mg/dL (7-18); MAGNESIUM 2.4 mg/dL (1.8-2.4)
[2022-02-04 08:32] LABS: CREATININE 1.2 mg/dL (0.55-1.3)
[2022-02-04] MEDS: SPIRONOLACTONE 25 MG TABLET PO SCH (10:24)
[2022-02-04] MEDS: POTASSIUM CHLORIDE TABS 10 MEQ TABLET.ER (FP) PO SCH (10:24)
[2022-02-04] MEDS: CARVEDILOL 6.25 MG TABLET (FP) PO SCH ×2 (10:24→21:41)
[2022-02-04] MEDS: ASPIRIN COATED 81 MG TABLET.EC PO SCH (10:24)
[2022-02-04] MEDS: ENOXAPARIN NA (PORCINE) 40 MG/0.4 ML DISP.SYRIN SQ SCH (10:24)
[2022-02-04] MEDS: FAMOTIDINE 20 MG TABLET PO SCH (10:24)
[2022-02-04] MEDS: FUROSEMIDE 40 MG/4 ML INJECTABLE VIAL IVPUSH SCH (10:25)
[2022-02-04] MEDS: ROSUVASTATIN CA 10 MG TABLET PO SCH (21:40)
[2022-02-05] MEDS: SILDENAFIL CITRATE 20 MG TAB PO SCH ×2 (05:56→13:18)
[2022-02-05] MEDS: INSULIN (LEVEMIR) 100 UNITS/ML UNITS SQ SCH (06:00)
[2022-02-05] MEDS: INSULIN SLIDING SCALE (NOVOLOG) 1 VIAL SQ SCH ×2 (06:01→11:15)
[2022-02-05] MEDS: SPIRONOLACTONE 25 MG TABLET PO SCH (09:38)
[2022-02-05] MEDS: CARVEDILOL 6.25 MG TABLET (FP) PO SCH (09:38)
[2022-02-05] MEDS: ASPIRIN COATED 81 MG TABLET.EC PO SCH (09:38)
[2022-02-05] MEDS: POTASSIUM CHLORIDE TABS 10 MEQ TABLET.ER (FP) PO SCH (09:39)
[2022-02-05] MEDS: ENOXAPARIN NA (PORCINE) 40 MG/0.4 ML DISP.SYRIN SQ SCH (09:39)
[2022-02-05] MEDS: FUROSEMIDE 40 MG/4 ML INJECTABLE VIAL IVPUSH SCH (09:39)
[2022-02-05] MEDS: FAMOTIDINE 20 MG TABLET PO SCH (09:39)
[2022-02-05 13:49] VITALS: BP 114/48; PULSE 68; TEMP 98.3
[2022-02-06 21:06] LABS: METHYLMALONIC ACID- 1472 nmol/L (0-378)
== END 2022-02-05 15:31 | disposition home or self-care (01) | DRG 291 ==
LOC: JER 05:33 → JERBED 08:15 → J4S 21:27
PROVIDERS: ADMIT Internal Medicine
DX: I11.0 Hypertensive heart disease with heart failure (principal); I50.33 Acute on chronic diastolic (congestive) heart failure; I24.8 Other forms of acute ischemic heart disease; K86.2 Cyst of pancreas; J96.11 Chronic respiratory failure with hypoxia; D61.818 Other pancytopenia; E87.6 Hypokalemia; E78.5 Hyperlipidemia, unspecified; I27.20 Pulmonary hypertension, unspecified; D69.6 Thrombocytopenia, unspecified; E11.9 Type 2 diabetes mellitus without complications; I25.2 Old myocardial infarction; H54.8 Legal blindness, as defined in USA; I25.10 Atherosclerotic heart disease of native coronary artery without angina pectoris; F03.90 Unspecified dementia, unspecified severity, without behavioral disturbance, psychotic disturbance, mood disturbance, and anxiety; K21.9 Gastro-esophageal reflux disease without esophagitis; Z95.5 Presence of coronary angioplasty implant and graft; Z99.81 Dependence on supplemental oxygen; R16.1 Splenomegaly, not elsewhere classified
CPT/HCPCS: 36415; 71045-TC-FY; 74176-TC; 76700-TC; 80048; 80053; 81003; 82607; 82728; 82746; 82962; 83010; 83036; 83540; 83550; 83615; 83735; 83880; 83883; 83921; 84100; 84155; 84165; 84484; 85025; 85027; 85045; 86850; 86870; 86900; 86901; 86902; 87040; 87081; 87086; 87186; 87804; 87899; 93005; 93010; 93306-TC; 97116-GP; 97161-GP; 99285-25; C9803-CS; U0003; U0005

== ENCOUNTER 2022-06-26 13:26 | Emergency (ER) | payer OTHER ==
[2022-06-26 13:48] VITALS: BP 95/72; PULSE 73; RESP 19; TEMP 98.4; BMI 17.7
== END 2022-06-26 17:35 | disposition home or self-care (01) ==
LOC: JER 13:26
DX: U07.1 COVID-19 (principal)
CPT/HCPCS: 71046-TC-FY; 99283-25

== ENCOUNTER 2022-07-24 13:41 | Inpatient (IN) | payer OTHER ==
[2022-07-24 17:58] LABS: BASO % 0.8 % (0-2.0); HEMATOCRIT 23.9 % (32.4-45.2); LYMPH % 36.7 % (8-40); MCH 32.2 pg (25.7-33.7); MCHC 33.2 g/dl (32.0-36.0); MEAN CELL VOLUME 96.8 fl (80-96); MONO % 12.6 % (3.8-10.2); NEUT % 43.9 % (42.8-82.8); PLATELET COUNT 86 10^3/uL (134-434); RBC 2.47 M/mm3 (3.60-5.2); RDW 16.3 % (11.6-15.6)
[2022-07-24 17:59] LABS: WHITE BLOOD COUNT 1.7 K/mm3 (4.0-10.0)
[2022-07-24 18:05] LABS: INR 1.23 (0.83-1.09); PROTHROMBIN TIME (PATIENT) 14.2 SEC (9.7-13.0)
[2022-07-24 18:08] LABS: ACTIVATED PTT 34.5 SECONDS (25.2-36.5)
[2022-07-24 18:15] LABS: CHLORIDE 107 mmol/L (98-107); SODIUM 143 mmol/L (136-145)
[2022-07-24 18:19] LABS: CALCIUM 9.1 mg/dL (8.5-10.1)
[2022-07-24 18:20] LABS: ANION GAP 9 MMOL/L (8-16); BLOOD UREA NITROGEN 12.9 mg/dL (7-18); CO2 27 mmol/L (21-32); GLUCOSE,RANDOM 137 mg/dL (74-106)
[2022-07-24 18:21] LABS: ANISOCYTOSIS 2+; MACROCYTOSIS 0; OVALOCYTE 1+; TARGET CELLS 1+
[2022-07-24 18:22] LABS: CREATININE 1.2 mg/dL (0.55-1.3); SGOT/AST 20 U/L (15-37); SGPT/ALT 13 U/L (13-61)
[2022-07-24 18:25] LABS: BILIRUBIN,TOTAL 0.9 mg/dL (0.2-1); TOT PROT 5.9 g/dl (6.4-8.2)
[2022-07-24 18:26] LABS: ALK PHOS 116 U/L (45-117)
[2022-07-25 01:36] VITALS: BMI 24.7
[2022-07-25] MEDS: INSULIN SLIDING SCALE (NOVOLOG) 1 VIAL SQ SCH ×3 (06:07→17:10)
[2022-07-25 08:55] LABS: BASO % 1.4 % (0-2.0); EOS % 6.2 % (0-4.5); HEMATOCRIT 24.3 % (32.4-45.2); HEMOGLOBIN 8.2 GM/dL (10.7-15.3); LYMPH % 37.5 % (8-40); MCH 32.1 pg (25.7-33.7); MCHC 33.7 g/dl (32.0-36.0); MEAN CELL VOLUME 95.1 fl (80-96); MONO % 11.9 % (3.8-10.2); PLATELET COUNT 100 10^3/uL (134-434); RBC 2.55 M/mm3 (3.60-5.2); RDW 15.6 % (11.6-15.6)
[2022-07-25 09:03] LABS: INR 1.29 (0.83-1.09); PROTHROMBIN TIME (PATIENT) 14.9 SEC (9.7-13.0)
[2022-07-25 09:05] LABS: ACTIVATED PTT 33.9 SECONDS (25.2-36.5)
[2022-07-25] MEDS: ASPIRIN 81 MG CHEWABLE TABLETS PO SCH (09:10)
[2022-07-25] MEDS: CARVEDILOL 6.25 MG TABLET (FP) PO SCH ×2 (09:10→21:40)
[2022-07-25] MEDS: SPIRONOLACTONE 25 MG TABLET PO SCH (09:10)
[2022-07-25 09:16] LABS: BLOOD UREA NITROGEN 13.2 mg/dL (7-18)
[2022-07-25 09:17] LABS: ALBUMIN 2.8 g/dl (3.4-5.0); MAGNESIUM 1.8 mg/dL (1.8-2.4)
[2022-07-25 09:19] LABS: PHOSPHOROUS 2.7 mg/dL (2.5-4.9); URIC ACID 4.7 mg/dL (2.6-7.2)
[2022-07-25 09:21] LABS: LDH 190 U/L (84-246); TOT PROT 5.6 g/dl (6.4-8.2)
[2022-07-25] MEDS ORDERED: POTASSIUM CHLORIDE TABS 20 MEQ TABLET.ER (FP) PO ONE (10:28)
[2022-07-25 11:19] LABS: N-TERMINAL BNP 2814.7 pg/ml (5-450)
[2022-07-25] MEDS: INSULIN (NOVOLOG) ASPART 100 UNITS/ML 10ML VIAL SQ SCH ×2 (12:02→17:12)
[2022-07-25] MEDS: ROSUVASTATIN CA 10 MG TABLET PO SCH (21:40)
[2022-07-25] MEDS: MOMETASONE FUROATE 220 MCG/IH INHALER IH SCH (22:29)
[2022-07-26] MEDS: INSULIN SLIDING SCALE (NOVOLOG) 1 VIAL SQ SCH ×3 (06:09→17:00)
[2022-07-26] MEDS: INSULIN (LEVEMIR) 100 UNITS/ML UNITS SQ SCH (08:02)
[2022-07-26] MEDS: INSULIN (NOVOLOG) ASPART 100 UNITS/ML 10ML VIAL SQ SCH ×3 (08:06→18:35)
[2022-07-26] MEDS ORDERED: ASPIRIN COATED 81 MG TABLET.EC PO SCH (10:00)
[2022-07-26 10:33] LABS: BASO % 0.9 % (0-2.0); EOS % 6.6 % (0-4.5); HEMATOCRIT 25.2 % (32.4-45.2); HEMOGLOBIN 8.4 GM/dL (10.7-15.3); LYMPH % 28.5 % (8-40); MCH 32.2 pg (25.7-33.7); MCHC 33.4 g/dl (32.0-36.0); MEAN CELL VOLUME 96.4 fl (80-96); MEAN PLT VOLUME 7.2 fl (7.5-11.1); MONO % 12.9 % (3.8-10.2); NEUT % 51.1 % (42.8-82.8); PLATELET COUNT 97 10^3/uL (134-434); RBC 2.61 M/mm3 (3.60-5.2); RDW 16.4 % (11.6-15.6); WHITE BLOOD COUNT 2.2 K/mm3 (4.0-10.0)
[2022-07-26] MEDS: FAMOTIDINE 10 MG TABLET PO SCH (10:40)
[2022-07-26] MEDS: ASPIRIN 81 MG CHEWABLE TABLETS PO SCH (10:40)
[2022-07-26] MEDS: CARVEDILOL 6.25 MG TABLET (FP) PO SCH ×2 (10:40→21:28)
[2022-07-26] MEDS: SPIRONOLACTONE 25 MG TABLET PO SCH (10:40)
[2022-07-26 10:54] LABS: BLOOD UREA NITROGEN 11.2 mg/dL (7-18)
[2022-07-26 10:56] LABS: CREATININE 0.9 mg/dL (0.55-1.3)
[2022-07-26] MEDS: sitaGLIPtin PHOSPHATE 50 MG TABLET PO SCH (12:34)
[2022-07-26] MEDS: MOMETASONE FUROATE 220 MCG/IH INHALER IH SCH (21:28)
[2022-07-26] MEDS: ROSUVASTATIN CA 10 MG TABLET PO SCH (21:28)
[2022-07-27] MEDS: INSULIN SLIDING SCALE (NOVOLOG) 1 VIAL SQ SCH ×4 (06:06→18:30)
[2022-07-27] MEDS: INSULIN (NOVOLOG) ASPART 100 UNITS/ML 10ML VIAL SQ SCH ×3 (06:37→18:05)
[2022-07-27] MEDS: INSULIN (LEVEMIR) 100 UNITS/ML UNITS SQ SCH (09:18)
[2022-07-27] MEDS: CARVEDILOL 6.25 MG TABLET (FP) PO SCH ×2 (10:21→21:22)
[2022-07-27] MEDS: sitaGLIPtin PHOSPHATE 50 MG TABLET PO SCH (10:21)
[2022-07-27] MEDS: FAMOTIDINE 10 MG TABLET PO SCH (10:21)
[2022-07-27] MEDS: SPIRONOLACTONE 25 MG TABLET PO SCH (10:21)
[2022-07-27] MEDS: ASPIRIN 81 MG CHEWABLE TABLETS PO SCH (10:21)
[2022-07-27 17:17] LABS: BASO % 0.6 % (0-2.0); EOS % 5.8 % (0-4.5); HEMATOCRIT 24.6 % (32.4-45.2); HEMOGLOBIN 8.3 GM/dL (10.7-15.3); MCH 32.5 pg (25.7-33.7); MCHC 33.7 g/dl (32.0-36.0); MEAN CELL VOLUME 96.3 fl (80-96); MEAN PLT VOLUME 7.3 fl (7.5-11.1); MONO % 12.7 % (3.8-10.2); NEUT % 50.9 % (42.8-82.8); PLATELET COUNT 93 10^3/uL (134-434); RBC 2.56 M/mm3 (3.60-5.2); RDW 16.1 % (11.6-15.6)
[2022-07-27 17:41] LABS: BLOOD UREA NITROGEN 14.8 mg/dL (7-18); CALCIUM 9.3 mg/dL (8.5-10.1)
[2022-07-27 17:45] LABS: CREATININE 1.1 mg/dL (0.55-1.3)
[2022-07-27] MEDS: ROSUVASTATIN CA 10 MG TABLET PO SCH (21:22)
[2022-07-27] MEDS: MOMETASONE FUROATE 220 MCG/IH INHALER IH SCH (21:23)
[2022-07-28] MEDS: INSULIN SLIDING SCALE (NOVOLOG) 1 VIAL SQ SCH ×3 (07:00→16:25)
[2022-07-28] MEDS: INSULIN (NOVOLOG) ASPART 100 UNITS/ML 10ML VIAL SQ SCH ×3 (07:01→17:31)
[2022-07-28] MEDS: INSULIN (LEVEMIR) 100 UNITS/ML UNITS SQ SCH (07:01)
[2022-07-28] MEDS: ASPIRIN 81 MG CHEWABLE TABLETS PO SCH (10:09)
[2022-07-28] MEDS: SPIRONOLACTONE 25 MG TABLET PO SCH (10:09)
[2022-07-28] MEDS: CARVEDILOL 6.25 MG TABLET (FP) PO SCH ×2 (10:10→22:43)
[2022-07-28] MEDS: sitaGLIPtin PHOSPHATE 50 MG TABLET PO SCH (10:10)
[2022-07-28] MEDS: FAMOTIDINE 10 MG TABLET PO SCH (10:10)
[2022-07-28] MEDS: MOMETASONE FUROATE 220 MCG/IH INHALER IH SCH (22:43)
[2022-07-28] MEDS: ROSUVASTATIN CA 10 MG TABLET PO SCH (22:43)
[2022-07-29] MEDS: INSULIN (NOVOLOG) ASPART 100 UNITS/ML 10ML VIAL SQ SCH ×2 (06:57→12:41)
[2022-07-29] MEDS: INSULIN SLIDING SCALE (NOVOLOG) 1 VIAL SQ SCH ×2 (06:57→12:39)
[2022-07-29] MEDS: INSULIN (LEVEMIR) 100 UNITS/ML UNITS SQ SCH (06:57)
[2022-07-29 07:14] VITALS: TEMP 97.7
[2022-07-29] MEDS: FAMOTIDINE 10 MG TABLET PO SCH (10:18)
[2022-07-29] MEDS: ASPIRIN 81 MG CHEWABLE TABLETS PO SCH (10:19)
[2022-07-29] MEDS: sitaGLIPtin PHOSPHATE 50 MG TABLET PO SCH (10:19)
[2022-07-29 10:25] VITALS: BP 105/51; PULSE 59; RESP 17
[2022-07-29] MEDS: SPIRONOLACTONE 25 MG TABLET PO SCH (10:30)
[2022-07-29] MEDS: CARVEDILOL 6.25 MG TABLET (FP) PO SCH (10:30)
[2022-07-29 11:02] LABS: CHOLESTEROL 147 mg/dL (50-200); TRIGLYCERIDES 85 mg/dL (0-150)
[2022-07-29 11:03] LABS: LDL CHOLESTEROL (ONLY SJRH) 83 mg/dL (5-100)
[2022-07-29 11:06] LABS: HDL CHOLESTEROL 47 mg/dL (40-60)
== END 2022-07-29 12:30 | DRG 809 ==
LOC: JER 13:41 → JERBED 20:49 → J5S 07-25 00:39
PROVIDERS: ADMIT Internal Medicine; ATTEND Internal Medicine
DX: D61.818 Other pancytopenia (principal); I24.8 Other forms of acute ischemic heart disease; I50.32 Chronic diastolic (congestive) heart failure; K86.2 Cyst of pancreas; I27.20 Pulmonary hypertension, unspecified; I11.0 Hypertensive heart disease with heart failure; E11.65 Type 2 diabetes mellitus with hyperglycemia; F03.90 Unspecified dementia, unspecified severity, without behavioral disturbance, psychotic disturbance, mood disturbance, and anxiety; I25.10 Atherosclerotic heart disease of native coronary artery without angina pectoris; K21.9 Gastro-esophageal reflux disease without esophagitis; E78.5 Hyperlipidemia, unspecified; Z95.5 Presence of coronary angioplasty implant and graft
CPT/HCPCS: 36415; 71045-TC-FY; 80048; 80053; 80061; 82525; 82607; 82728; 82746; 82962; 83615; 83735; 83880; 84100; 84443; 84484; 84550; 85025; 85045; 85610; 85730; 86038; 86850; 86870; 86900; 86901; 86902; 88300-TC; 93005; 93010; 93306-TC; 97116-GP; 97162-GP; 99285-25; C9803-CS; U0003; U0005

== ENCOUNTER 2022-09-04 16:33 | Inpatient (IN) | payer OTHER ==
[2022-09-04 18:13] VITALS: BMI 29.2
[2022-09-04 18:44] LABS: BASO % 0.9 % (0-2.0); EOS % 1.5 % (0-4.5); HEMOGLOBIN 9.5 GM/dL (10.7-15.3); LYMPH % 13.6 % (8-40); MCH 29.5 pg (25.7-33.7); MCHC 32.9 g/dl (32.0-36.0); MEAN CELL VOLUME 89.7 fl (80-96); MEAN PLT VOLUME 7.5 fl (7.5-11.1); MONO % 10.5 % (3.8-10.2); NEUT % 73.5 % (42.8-82.8); PLATELET COUNT 101 10^3/uL (134-434); RBC 3.23 M/mm3 (3.60-5.2); WHITE BLOOD COUNT 3.6 K/mm3 (4.0-10.0)
[2022-09-04 18:50] LABS: INR 1.28 (0.83-1.09); PROTHROMBIN TIME (PATIENT) 14.7 SEC (9.7-13.0)
[2022-09-04 18:58] LABS: VENOUS BASE EXCESS 2.1 mmol/L (-2-2); VENOUS O2 SATURATION 40.7 % (70-80); VENOUS PCO2 47.5 mmHg (38-52); VENOUS PH 7.383 (7.310-7.410)
[2022-09-04 19:08] LABS: CHLORIDE 100 mmol/L (98-107); SODIUM 138 mmol/L (136-145)
[2022-09-04 19:10] LABS: ALBUMIN 3.5 g/dl (3.4-5.0); ANION GAP 10 MMOL/L (8-16); BLOOD UREA NITROGEN 16.4 mg/dL (7-18); CALCIUM 9.3 mg/dL (8.5-10.1); CO2 28 mmol/L (21-32); GLUCOSE,RANDOM 154 mg/dL (74-106)
[2022-09-04 19:13] LABS: CREATININE 1.6 mg/dL (0.55-1.3)
[2022-09-04 19:14] LABS: SGOT/AST 19 U/L (15-37); SGPT/ALT 16 U/L (13-61)
[2022-09-04 19:15] LABS: TOT PROT 6.7 g/dl (6.4-8.2)
[2022-09-04 19:16] LABS: ALK PHOS 97 U/L (45-117)
[2022-09-04 19:34] LABS: LACTIC ACID 2.8 mmol/L (0.4-2.0)
[2022-09-04] MEDS ORDERED: LACTATED RINGERS SOLUTION 1000 ML INFUS.BAG IV ONE (20:24)
[2022-09-04] MEDS ORDERED: ASPIRIN 81 MG CHEWABLE TABLETS PO ONE (20:38)
[2022-09-04] MEDS ORDERED: ASPIRIN 81 MG CHEWABLE TABLETS ONE (20:46)
[2022-09-04] MEDS ORDERED: SODIUM CHLORIDE 1,000 ML IV SCH (22:30)
[2022-09-04] MEDS: OSELTAMIVIR PHOSPHATE 30 MG CAPSULE PO SCH (23:50)
[2022-09-05 01:46] LABS: EPI CELLS 2 /uL (0-25.1); HYALINE CASTS 0 /uL (0-3.1); URINE APPEARANCE CLOUDY; URINE BACTERIA >9,000 /uL (0-1359); URINE BILIRUBIN NEGATIVE (NEGATIVE); URINE COLOR YELLOW; URINE GLUCOSE (UA) NEGATIVE (NEGATIVE); URINE KETONE NEGATIVE (NEGATIVE); URINE LEUK ESTERASE 3+ (NEGATIVE); URINE NITRITE POSITIVE (NEGATIVE); URINE PROTEIN 2+ (NEGATIVE); URINE RBC 22 /uL (0-23.9); URINE WBC 679 /uL (0-25.8)
[2022-09-05] MEDS ORDERED: CEFTRIAXONE 1 GM in DEXTROSE 5%-WATER - 50 ML IVPB ONE (01:58)
[2022-09-05] MEDS ORDERED: CEFTRIAXONE 1 GM/50 ML BAG ONE (02:09)
[2022-09-05] MEDS ORDERED: FLUTICASONE/UMECLIDIN/VILANTER(200-62.5-25 TRELEGY ELLIPTA) INAHLER IH SCH (10:00)
[2022-09-05] MEDS ORDERED: FAMOTIDINE 20 MG TABLET PO SCH (10:15)
[2022-09-05] MEDS: ASPIRIN COATED 81 MG TABLET.EC PO SCH (11:07)
[2022-09-05] MEDS: FAMOTIDINE 20 MG TABLET PO SCH (11:07)
[2022-09-05] MEDS: CARVEDILOL 6.25 MG TABLET (FP) PO SCH ×2 (11:07→21:44)
[2022-09-05] MEDS: OSELTAMIVIR PHOSPHATE 30 MG CAPSULE PO SCH ×2 (11:18→21:44)
[2022-09-05] MEDS: ACETAMINOPHEN 325 MG TABLET (FP) PO PRN (12:31)
[2022-09-05 12:32] LABS: PHOSPHOROUS 2.8 mg/dL (2.5-4.9)
[2022-09-05] MEDS: SODIUM CHLORIDE 1,000 ML IV SCH (12:33)
[2022-09-05 12:37] LABS: N-TERMINAL BNP 3076.8 pg/ml (5-450)
[2022-09-05] MEDS ORDERED: SODIUM CHLORIDE 250 ML IV ONE (16:15)
[2022-09-05] MEDS: ROSUVASTATIN CA 10 MG TABLET PO SCH (21:44)
[2022-09-06 08:20] LABS: BLOOD UREA NITROGEN 18.9 mg/dL (7-18); CALCIUM 8.2 mg/dL (8.5-10.1)
[2022-09-06 08:23] LABS: CREATININE 1.3 mg/dL (0.55-1.3)
[2022-09-06 08:25] LABS: BILIRUBIN,TOTAL 0.8 mg/dL (0.2-1); TOT PROT 5.5 g/dl (6.4-8.2)
[2022-09-06 08:32] LABS: BASO % 0.7 % (0-2.0); EOS % 4.1 % (0-4.5); HEMATOCRIT 24.4 % (32.4-45.2); HEMOGLOBIN 8.2 GM/dL (10.7-15.3); LYMPH % 20.3 % (8-40); MCH 29.9 pg (25.7-33.7); MCHC 33.7 g/dl (32.0-36.0); MEAN CELL VOLUME 88.6 fl (80-96); MEAN PLT VOLUME 7.7 fl (7.5-11.1); MONO % 10.3 % (3.8-10.2); NEUT % 64.6 % (42.8-82.8); PLATELET COUNT 72 10^3/uL (134-434); RBC 2.75 M/mm3 (3.60-5.2); RDW 13.9 % (11.6-15.6); WHITE BLOOD COUNT 2.4 K/mm3 (4.0-10.0)
[2022-09-06 09:02] LABS: ALBUMIN 2.7 g/dl (3.4-5.0)
[2022-09-06] MEDS: CARVEDILOL 6.25 MG TABLET (FP) PO SCH ×2 (10:10→21:29)
[2022-09-06] MEDS: FAMOTIDINE 20 MG TABLET PO SCH (10:18)
[2022-09-06] MEDS: CEFTRIAXONE 1 GM in DEXTROSE 5%-WATER - 50 ML IVPB SCH (10:18)
[2022-09-06] MEDS: ASPIRIN COATED 81 MG TABLET.EC PO SCH (10:19)
[2022-09-06] MEDS: OSELTAMIVIR PHOSPHATE 30 MG CAPSULE PO SCH ×2 (10:19→21:29)
[2022-09-06] MEDS: SODIUM CHLORIDE 1,000 ML IV SCH (18:54)
[2022-09-06] MEDS: ROSUVASTATIN CA 10 MG TABLET PO SCH (21:30)
[2022-09-07 08:23] LABS: BASO % 0.9 % (0-2.0); EOS % 6.1 % (0-4.5); HEMATOCRIT 26.4 % (32.4-45.2); HEMOGLOBIN 8.8 GM/dL (10.7-15.3); LYMPH % 21.8 % (8-40); MCH 29.6 pg (25.7-33.7); MCHC 33.2 g/dl (32.0-36.0); MEAN CELL VOLUME 89.2 fl (80-96); MEAN PLT VOLUME 7.7 fl (7.5-11.1); MONO % 7.1 % (3.8-10.2); NEUT % 64.1 % (42.8-82.8); PLATELET COUNT 72 10^3/uL (134-434); RBC 2.96 M/mm3 (3.60-5.2); RDW 13.8 % (11.6-15.6); WHITE BLOOD COUNT 2.6 K/mm3 (4.0-10.0)
[2022-09-07 08:31] LABS: CALCIUM 8.3 mg/dL (8.5-10.1)
[2022-09-07 08:32] LABS: ALBUMIN 2.8 g/dl (3.4-5.0); BLOOD UREA NITROGEN 14.5 mg/dL (7-18)
[2022-09-07 08:35] LABS: CREATININE 1.1 mg/dL (0.55-1.3)
[2022-09-07 08:37] LABS: BILIRUBIN,TOTAL 0.8 mg/dL (0.2-1); TOT PROT 5.9 g/dl (6.4-8.2)
[2022-09-07] MEDS: CEFTRIAXONE 1 GM in DEXTROSE 5%-WATER - 50 ML IVPB SCH (10:49)
[2022-09-07] MEDS: ASPIRIN COATED 81 MG TABLET.EC PO SCH (10:49)
[2022-09-07] MEDS: FAMOTIDINE 20 MG TABLET PO SCH (10:49)
[2022-09-07] MEDS: CARVEDILOL 6.25 MG TABLET (FP) PO SCH ×2 (10:49→21:41)
[2022-09-07] MEDS: OSELTAMIVIR PHOSPHATE 30 MG CAPSULE PO SCH ×2 (12:24→21:42)
[2022-09-07] MEDS: SODIUM CHLORIDE 1,000 ML IV SCH (16:03)
[2022-09-07] MEDS: ROSUVASTATIN CA 10 MG TABLET PO SCH (21:41)
[2022-09-07] MEDS: guaiFENesin 200 MG/10 ML 10 ML UNIT-DOSE CUPS PO PRN (21:41)
[2022-09-07] MEDS: ACETAMINOPHEN 325 MG TABLET (FP) PO PRN (21:42)
[2022-09-08 07:40] LABS: BASO % 0.9 % (0-2.0); HEMATOCRIT 26.1 % (32.4-45.2); HEMOGLOBIN 8.7 GM/dL (10.7-15.3); LYMPH % 30.8 % (8-40); MCH 29.7 pg (25.7-33.7); MCHC 33.4 g/dl (32.0-36.0); MEAN CELL VOLUME 88.7 fl (80-96); MEAN PLT VOLUME 7.5 fl (7.5-11.1); MONO % 7.8 % (3.8-10.2); NEUT % 51.5 % (42.8-82.8); PLATELET COUNT 75 10^3/uL (134-434); RBC 2.94 M/mm3 (3.60-5.2); RDW 13.8 % (11.6-15.6); WHITE BLOOD COUNT 2.1 K/mm3 (4.0-10.0)
[2022-09-08 08:02] LABS: CALCIUM 8.7 mg/dL (8.5-10.1)
[2022-09-08 08:05] LABS: CREATININE 1.1 mg/dL (0.55-1.3)
[2022-09-08] MEDS: CARVEDILOL 6.25 MG TABLET (FP) PO SCH ×2 (09:41→21:47)
[2022-09-08] MEDS: FAMOTIDINE 20 MG TABLET PO SCH (09:41)
[2022-09-08] MEDS: CEFTRIAXONE 1 GM in DEXTROSE 5%-WATER - 50 ML IVPB SCH (09:41)
[2022-09-08] MEDS: ASPIRIN COATED 81 MG TABLET.EC PO SCH (09:41)
[2022-09-08] MEDS: OSELTAMIVIR PHOSPHATE 30 MG CAPSULE PO SCH ×2 (09:42→21:47)
[2022-09-08] MEDS: guaiFENesin 200 MG/10 ML 10 ML UNIT-DOSE CUPS PO PRN ×3 (09:44→21:53)
[2022-09-08] MEDS: SODIUM CHLORIDE 1,000 ML IV SCH (21:46)
[2022-09-08] MEDS: ROSUVASTATIN CA 10 MG TABLET PO SCH (21:47)
[2022-09-09 06:46] VITALS: BP 129/59; PULSE 52; RESP 19; TEMP 98.3
== END 2022-09-09 10:52 | DRG 194 ==
LOC: JER 16:33 → JERBED 20:21 → J4W 09-05 03:43 → J4S 09-08 22:59
PROVIDERS: ADMIT Internal Medicine; ATTEND Internal Medicine
DX: J09.X2 Influenza due to identified novel influenza A virus with other respiratory manifestations (principal); D61.818 Other pancytopenia; N39.0 Urinary tract infection, site not specified; N17.9 Acute kidney failure, unspecified; K86.2 Cyst of pancreas; E87.20 Acidosis, unspecified; I50.32 Chronic diastolic (congestive) heart failure; I27.20 Pulmonary hypertension, unspecified; F03.90 Unspecified dementia, unspecified severity, without behavioral disturbance, psychotic disturbance, mood disturbance, and anxiety; E11.9 Type 2 diabetes mellitus without complications; I11.0 Hypertensive heart disease with heart failure; D69.6 Thrombocytopenia, unspecified; D64.9 Anemia, unspecified; K21.9 Gastro-esophageal reflux disease without esophagitis; I25.10 Atherosclerotic heart disease of native coronary artery without angina pectoris; D70.9 Neutropenia, unspecified; Z95.5 Presence of coronary angioplasty implant and graft; F41.8 Other specified anxiety disorders
CPT/HCPCS: 0241U-QW; 36415; 71045-TC-FY; 80048; 80053; 81003; 82550; 82553; 82803; 82962; 83036; 83605; 83735; 83880; 84100; 84484; 85025; 85610; 85730; 87040; 87086; 87186; 87899; 93005; 93010; 93970-TC; 94761; 97116-GP; 97161-GP; 99285-25

== ENCOUNTER 2022-11-26 14:06 | Inpatient (IN) | payer OTHER ==
[2022-11-26 14:42] VITALS: BMI 24.9
[2022-11-26 15:25] LABS: HEMATOCRIT 25.1 % (32.4-45.2); HEMOGLOBIN 8.7 GM/dL (10.7-15.3); MCH 28.6 pg (25.7-33.7); MCHC 34.5 g/dl (32.0-36.0); MEAN CELL VOLUME 82.9 fl (80-96); MEAN PLT VOLUME 6.2 fl (7.5-11.1); PLATELET COUNT 141 10^3/uL (134-434); RBC 3.03 M/mm3 (3.60-5.2); RDW 18.3 % (11.6-15.6); WHITE BLOOD COUNT 3.7 K/mm3 (4.0-10.0)
[2022-11-26] MEDS ORDERED: ASPIRIN 81 MG CHEWABLE TABLETS PO ONE (17:58)
[2022-11-26] MEDS ORDERED: ASPIRIN 81 MG CHEWABLE TABLETS ONE (18:52)
[2022-11-26] MEDS ORDERED: DEXTROSE 50%-WATER - 25 GM/50 ML VIAL IVPUSH ONE ×2 (19:13→19:31)
[2022-11-26] MEDS ORDERED: DEXTROSE 50%-WATER 25 GM/50 ML DISP.SYRIN ONE ×2 (19:13→19:18)
[2022-11-26 19:44] LABS: CHLORIDE 94 mmol/L (98-107); SODIUM 138 mmol/L (136-145)
[2022-11-26 19:46] LABS: ALBUMIN 2.5 g/dl (3.4-5.0); BLOOD UREA NITROGEN 15.4 mg/dL (7-18); CALCIUM 8.8 mg/dL (8.5-10.1); CO2 36 mmol/L (21-32)
[2022-11-26 19:49] LABS: SGOT/AST 21 U/L (15-37); SGPT/ALT 11 U/L (13-61)
[2022-11-26 19:50] LABS: CREATININE 1.2 mg/dL (0.55-1.3)
[2022-11-26 19:51] LABS: BILIRUBIN,TOTAL 1.3 mg/dL (0.2-1); TOT PROT 5.9 g/dl (6.4-8.2)
[2022-11-26 19:52] LABS: ALK PHOS 101 U/L (45-117)
[2022-11-26 19:58] LABS: ANION GAP 8 MMOL/L (8-16); GLUCOSE,RANDOM 22 mg/dL (74-106)
[2022-11-26] MEDS ORDERED: POTASSIUM CHLORIDE TABS 10 MEQ TABLET.ER (FP) PO ONE (20:06)
[2022-11-26] MEDS ORDERED: POTASSIUM CHLORIDE ORAL LIQUID 20 MEQ/15 ML PO ONE (20:08)
[2022-11-26] MEDS ORDERED: KCL 10 MEQ IVPB 30 MEQ/300 ML INFUS.BAG IVPB ONE (20:10)
[2022-11-26] MEDS ORDERED: POTASSIUM CHLORIDE ORAL LIQUID 20 MEQ/15 ML ONE (20:10)
[2022-11-26] MEDS: KCL 10 MEQ IVPB 10 MEQ/100 ML INFUS.BAG IVPB SCH ×2 (20:46→23:20)
[2022-11-26 21:06] LABS: MAGNESIUM 2.1 mg/dL (1.8-2.4)
[2022-11-26 21:09] LABS: PHOSPHOROUS 1.8 mg/dL (2.5-4.9)
[2022-11-26] MEDS ORDERED: PIPERACILLIN/TAZOB 3.375 GM 3.375 GM in DEXTROSE 5%-WATER - 50 ML IVPB ONE (21:10)
[2022-11-26] MEDS ORDERED: VANCOMYCIN 1 GM PREMIX - 1 GM/200 ML BAG IVPB ONE (21:10)
[2022-11-26 22:36] LABS: EPI CELLS 12 /uL (0-25.1); HYALINE CASTS 1 /uL (0-3.1); URINE APPEARANCE CLEAR; URINE BACTERIA 10 /uL (0-1359); URINE BILIRUBIN NEGATIVE (NEGATIVE); URINE COLOR YELLOW; URINE GLUCOSE (UA) 1+ (NEGATIVE); URINE KETONE NEGATIVE (NEGATIVE); URINE LEUK ESTERASE NEGATIVE (NEGATIVE); URINE NITRITE NEGATIVE (NEGATIVE); URINE PROTEIN 2+ (NEGATIVE); URINE RBC 10 /uL (0-23.9); URINE WBC 11 /uL (0-25.8)
[2022-11-26] MEDS ORDERED: VANCOMYCIN/WATER FOR INJ (PEG) 1,000 MG/200 ML BAG IVPB ONE (23:58)
[2022-11-26] MEDS ORDERED: PIPERACILLIN/TAZOB 3.375 GM 3.375 GM/50 ML BAG IVPB ONE (23:58)
[2022-11-27 02:03] LABS: CALCIUM 8.8 mg/dL (8.5-10.1); MAGNESIUM 1.9 mg/dL (1.8-2.4)
[2022-11-27 02:07] LABS: CREATININE 1.3 mg/dL (0.55-1.3)
[2022-11-27] MEDS ORDERED: DEXTROSE 50%-WATER - 25 GM/50 ML VIAL IVPUSH ONE (04:22)
[2022-11-27] MEDS ORDERED: DEXTROSE 50%-WATER 25 GM/50 ML DISP.SYRIN ONE (04:23)
[2022-11-27] MEDS ORDERED: guaiFENesin 200 MG/10 ML 10 ML UNIT-DOSE CUPS PO PRN (07:30)
[2022-11-27] MEDS ORDERED: ACETAMINOPHEN 325 MG TABLET (FP) PO PRN (07:30)
[2022-11-27] MEDS ORDERED: DEXTROSE 50%-WATER - 25 GM/50 ML VIAL IVPUSH PRN (07:42)
[2022-11-27] MEDS: PIPERACILLIN/TAZOB 2.25 GM 2.25 GM in DEXTROSE 5%-WATER - 50 ML IVPB SCH ×3 (09:59→18:48)
[2022-11-27] MEDS: CARVEDILOL 6.25 MG TABLET (FP) PO SCH ×2 (10:00→21:35)
[2022-11-27] MEDS: FAMOTIDINE 20 MG TABLET PO SCH (10:00)
[2022-11-27] MEDS: ASPIRIN COATED 81 MG TABLET.EC PO SCH (10:00)
[2022-11-27] MEDS ORDERED: VANCOMYCIN 1 GM/200 ML PREMIX BAG (RESTRICTED TO ID ONLY) IVPB SCH (10:00)
[2022-11-27] MEDS: NAPH,MB-DB/K PH,MBDB POWDER PACKET PO SCH ×3 (10:20→21:33)
[2022-11-27] MEDS: FLUTICASONE PROP 0.05% 16 GM NASAL SPRAY NS SCH (10:21)
[2022-11-27] MEDS: FERROUS SO4 325 MG TABLET (FP) PO SCH (10:21)
[2022-11-27 11:48] LABS: BASO % 0.5 % (0-2.0); EOS % 3.5 % (0-4.5); HEMOGLOBIN 8.2 GM/dL (10.7-15.3); LYMPH % 21.8 % (8-40); MCH 28.3 pg (25.7-33.7); MEAN CELL VOLUME 83.3 fl (80-96); MEAN PLT VOLUME 6.6 fl (7.5-11.1); MONO % 8.7 % (3.8-10.2); NEUT % 65.5 % (42.8-82.8); PLATELET COUNT 135 10^3/uL (134-434); RBC 2.89 M/mm3 (3.60-5.2); RDW 18.3 % (11.6-15.6); WHITE BLOOD COUNT 4.1 K/mm3 (4.0-10.0)
[2022-11-27 11:54] LABS: INR 1.36 (0.83-1.09); PROTHROMBIN TIME (PATIENT) 15.7 SEC (9.7-13.0)
[2022-11-27 11:56] LABS: ACTIVATED PTT 30.7 SECONDS (25.2-36.5)
[2022-11-27] MEDS ORDERED: VANCOMYCIN 1 GM in D5W (PRE-DOCKED) 1,000 MG/250 ML IVPB SCH (12:00)
[2022-11-27 12:16] LABS: CHLORIDE 97 mmol/L (98-107); SODIUM 138 mmol/L (136-145)
[2022-11-27 12:22] LABS: BLOOD UREA NITROGEN 11.7 mg/dL (7-18); CO2 36 mmol/L (21-32)
[2022-11-27 12:24] LABS: CREATININE 1.2 mg/dL (0.55-1.3)
[2022-11-27 12:48] LABS: ANION GAP 5 MMOL/L (8-16); GLUCOSE,RANDOM 43 mg/dL (74-106)
[2022-11-27 13:26] LABS: IRON SERUM 44 ug/dL (50-175)
[2022-11-27 13:27] LABS: TOTAL IRON BINDING CAPACITY 187 ug/dL (250-450)
[2022-11-27 13:41] LABS: LDH 252 U/L (84-246)
[2022-11-27] MEDS: SILDENAFIL CITRATE 20 MG TAB PO SCH ×2 (15:10→21:35)
[2022-11-27] MEDS: D5-1/2NS+10 MEQ KCL - 10 MEQ/1,000 ML INFUS.BAG IV SCH (16:37)
[2022-11-27] MEDS: ROSUVASTATIN CA 10 MG TABLET PO SCH (21:32)
[2022-11-28] MEDS: D5-1/2NS+10 MEQ KCL - 10 MEQ/1,000 ML INFUS.BAG IV SCH ×2 (05:21→17:32)
[2022-11-28] MEDS: NAPH,MB-DB/K PH,MBDB POWDER PACKET PO SCH ×3 (05:21→21:54)
[2022-11-28] MEDS: SILDENAFIL CITRATE 20 MG TAB PO SCH ×3 (05:27→21:54)
[2022-11-28 08:44] LABS: ALBUMIN 2.2 g/dl (3.4-5.0); BLOOD UREA NITROGEN 12.4 mg/dL (7-18); CALCIUM 8.2 mg/dL (8.5-10.1)
[2022-11-28 08:47] LABS: CREATININE 1.1 mg/dL (0.55-1.3)
[2022-11-28 08:49] LABS: BILIRUBIN,TOTAL 0.9 mg/dL (0.2-1); TOT PROT 5.2 g/dl (6.4-8.2)
[2022-11-28 08:53] LABS: N-TERMINAL BNP 3295.7 pg/ml (5-450)
[2022-11-28] MEDS: POTASSIUM CHLORIDE TABS 20 MEQ TABLET.ER (FP) PO SCH (10:46)
[2022-11-28] MEDS: CARVEDILOL 6.25 MG TABLET (FP) PO SCH ×2 (10:47→21:54)
[2022-11-28] MEDS: FAMOTIDINE 20 MG TABLET PO SCH (10:47)
[2022-11-28] MEDS: FLUTICASONE PROP 0.05% 16 GM NASAL SPRAY NS SCH (10:47)
[2022-11-28] MEDS: FERROUS SO4 325 MG TABLET (FP) PO SCH (10:47)
[2022-11-28] MEDS: ASPIRIN COATED 81 MG TABLET.EC PO SCH (10:47)
[2022-11-28 12:22] LABS: BASO % 0.7 % (0-2.0); EOS % 4.6 % (0-4.5); HEMATOCRIT 21.5 % (32.4-45.2); HEMOGLOBIN 7.2 GM/dL (10.7-15.3); LYMPH % 18.5 % (8-40); MCH 28.2 pg (25.7-33.7); MCHC 33.6 g/dl (32.0-36.0); MEAN CELL VOLUME 84.1 fl (80-96); MEAN PLT VOLUME 6.8 fl (7.5-11.1); MONO % 7.7 % (3.8-10.2); NEUT % 68.5 % (42.8-82.8); PLATELET COUNT 101 10^3/uL (134-434); RBC 2.56 M/mm3 (3.60-5.2); RDW 18.4 % (11.6-15.6); WHITE BLOOD COUNT 3.3 K/mm3 (4.0-10.0)
[2022-11-28] MEDS: PANTOPRAZOLE 40 MG TABLET PO SCH (17:48)
[2022-11-28] MEDS: ROSUVASTATIN CA 10 MG TABLET PO SCH (21:54)
[2022-11-29] MEDS ORDERED: DEXTROSE 50%-WATER 25 GM/50 ML DISP.SYRIN IVPUSH PRN (00:31)
[2022-11-29] MEDS: SILDENAFIL CITRATE 20 MG TAB PO SCH ×3 (06:00→21:58)
[2022-11-29] MEDS: NAPH,MB-DB/K PH,MBDB POWDER PACKET PO SCH (06:00)
[2022-11-29 08:19] LABS: BASO % 0.9 % (0-2.0); EOS % 4.6 % (0-4.5); HEMATOCRIT 24.9 % (32.4-45.2); HEMOGLOBIN 8.5 GM/dL (10.7-15.3); LYMPH % 23.6 % (8-40); MCH 29.8 pg (25.7-33.7); MCHC 34.3 g/dl (32.0-36.0); MEAN CELL VOLUME 86.9 fl (80-96); MEAN PLT VOLUME 6.9 fl (7.5-11.1); MONO % 7.8 % (3.8-10.2); NEUT % 63.1 % (42.8-82.8); PLATELET COUNT 90 10^3/uL (134-434); RBC 2.86 M/mm3 (3.60-5.2); RDW 18.5 % (11.6-15.6); WHITE BLOOD COUNT 3.1 K/mm3 (4.0-10.0)
[2022-11-29 08:20] LABS: CALCIUM 8.2 mg/dL (8.5-10.1)
[2022-11-29 08:21] LABS: BLOOD UREA NITROGEN 13.8 mg/dL (7-18)
[2022-11-29 08:24] LABS: CREATININE 1.1 mg/dL (0.55-1.3)
[2022-11-29] MEDS: CARVEDILOL 6.25 MG TABLET (FP) PO SCH ×2 (09:32→21:58)
[2022-11-29] MEDS: ASPIRIN COATED 81 MG TABLET.EC PO SCH (09:32)
[2022-11-29] MEDS: FERROUS SO4 325 MG TABLET (FP) PO SCH (09:32)
[2022-11-29] MEDS: FLUTICASONE PROP 0.05% 16 GM NASAL SPRAY NS SCH (09:33)
[2022-11-29] MEDS: POTASSIUM CHLORIDE TABS 20 MEQ TABLET.ER (FP) PO SCH (09:33)
[2022-11-29] MEDS: PANTOPRAZOLE 40 MG TABLET PO SCH (09:33)
[2022-11-29] MEDS: ROSUVASTATIN CA 10 MG TABLET PO SCH (21:58)
[2022-11-30] MEDS: SILDENAFIL CITRATE 20 MG TAB PO SCH ×3 (05:28→21:02)
[2022-11-30 08:07] LABS: BASO % 0.6 % (0-2.0); EOS % 4.9 % (0-4.5); HEMATOCRIT 24.9 % (32.4-45.2); HEMOGLOBIN 8.6 GM/dL (10.7-15.3); LYMPH % 25.1 % (8-40); MCH 30.3 pg (25.7-33.7); MCHC 34.8 g/dl (32.0-36.0); MEAN CELL VOLUME 87.1 fl (80-96); MEAN PLT VOLUME 6.6 fl (7.5-11.1); MONO % 6.2 % (3.8-10.2); NEUT % 63.2 % (42.8-82.8); PLATELET COUNT 90 10^3/uL (134-434); RBC 2.85 M/mm3 (3.60-5.2); WHITE BLOOD COUNT 3.9 K/mm3 (4.0-10.0)
[2022-11-30 08:28] LABS: CALCIUM 8.3 mg/dL (8.5-10.1)
[2022-11-30 08:29] LABS: BLOOD UREA NITROGEN 15.2 mg/dL (7-18)
[2022-11-30 08:31] LABS: CREATININE 1.1 mg/dL (0.55-1.3)
[2022-11-30] MEDS: ASPIRIN COATED 81 MG TABLET.EC PO SCH (11:03)
[2022-11-30] MEDS: CARVEDILOL 6.25 MG TABLET (FP) PO SCH ×2 (11:03→21:02)
[2022-11-30] MEDS: FERROUS SO4 325 MG TABLET (FP) PO SCH (11:03)
[2022-11-30] MEDS: PANTOPRAZOLE 40 MG TABLET PO SCH (11:03)
[2022-11-30] MEDS: POTASSIUM CHLORIDE TABS 20 MEQ TABLET.ER (FP) PO SCH (14:23)
[2022-11-30 21:02] VITALS: BP 121/52; PULSE 64; RESP 20; TEMP 97.7
[2022-11-30] MEDS: ROSUVASTATIN CA 10 MG TABLET PO SCH (21:02)
== END 2022-11-30 21:30 | DRG 812 ==
LOC: JER 14:06 → JERBED 20:59 → J4W 11-27 05:42
PROVIDERS: ADMIT Internal Medicine; ATTEND Internal Medicine
PROC: 30233N1 Transfusion of Nonautologous Red Blood Cells into Peripheral Vein, Percutaneous Approach (ICD-10-PCS; principal; 2022-11-26)
DX: D64.9 Anemia, unspecified (principal); E11.649 Type 2 diabetes mellitus with hypoglycemia without coma; E87.6 Hypokalemia; E83.39 Other disorders of phosphorus metabolism; R09.02 Hypoxemia; I25.10 Atherosclerotic heart disease of native coronary artery without angina pectoris; R16.1 Splenomegaly, not elsewhere classified; I27.20 Pulmonary hypertension, unspecified; I50.9 Heart failure, unspecified; I11.0 Hypertensive heart disease with heart failure; R77.8 Other specified abnormalities of plasma proteins; F03.90 Unspecified dementia, unspecified severity, without behavioral disturbance, psychotic disturbance, mood disturbance, and anxiety; Z95.5 Presence of coronary angioplasty implant and graft; K21.9 Gastro-esophageal reflux disease without esophagitis
CPT/HCPCS: 0241U-QW; 36415; 36430; 36511; 71045-TC-FY; 80048; 80053; 81003; 82272; 82533; 82728; 82962; 83036; 83540; 83550; 83615; 83735; 83880; 84100; 84443; 84466; 84484; 85025; 85027; 85045; 85610; 85730; 86850; 86900; 86901; 86922; 87040; 87086; 93005; 93010; 93306-TC; 97116-GP; 97162-GP; 99285-25; P9016

== ENCOUNTER 2022-12-30 13:23 | Inpatient (IN) | payer OTHER ==
[2022-12-30 15:20] LABS: BASO % 1.3 % (0-2.0); EOS % 0.5 % (0-4.5); HEMATOCRIT 32.2 % (32.4-45.2); HEMOGLOBIN 11.4 GM/dL (10.7-15.3); LYMPH % 23.7 % (8-40); MCHC 35.4 g/dl (32.0-36.0); MEAN CELL VOLUME 84.8 fl (80-96); MEAN PLT VOLUME 7.1 fl (7.5-11.1); MONO % 5.1 % (3.8-10.2); NEUT % 69.4 % (42.8-82.8); PLATELET COUNT 140 10^3/uL (134-434); RBC 3.79 M/mm3 (3.60-5.2); RDW 20.1 % (11.6-15.6); WHITE BLOOD COUNT 5.8 K/mm3 (4.0-10.0)
[2022-12-30 15:27] LABS: INR 1.37 (0.83-1.09); PROTHROMBIN TIME (PATIENT) 15.8 SEC (9.7-13.0)
[2022-12-30 15:39] LABS: CHLORIDE 80 mmol/L (98-107); SODIUM 133 mmol/L (136-145)
[2022-12-30 15:41] LABS: BLOOD UREA NITROGEN 15.8 mg/dL (7-18); CALCIUM 9.6 mg/dL (8.5-10.1); CO2 42 mmol/L (21-32); GLUCOSE,RANDOM 176 mg/dL (74-106); MAGNESIUM 1.9 mg/dL (1.8-2.4)
[2022-12-30 15:44] LABS: SGOT/AST 23 U/L (15-37); SGPT/ALT 12 U/L (13-61)
[2022-12-30 15:44] LABS: EPI CELLS 10 /uL (0-25.1); HYALINE CASTS 1 /uL (0-3.1); PH,URINE 5.5 (5.0-8.0); URINE APPEARANCE CLEAR; URINE BACTERIA 60 /uL (0-1359); URINE BILIRUBIN NEGATIVE (NEGATIVE); URINE COLOR DK YELLOW; URINE GLUCOSE (UA) NEGATIVE (NEGATIVE); URINE KETONE NEGATIVE (NEGATIVE); URINE LEUK ESTERASE NEGATIVE (NEGATIVE); URINE NITRITE NEGATIVE (NEGATIVE); URINE PROTEIN 1+ (NEGATIVE); URINE RBC 23 /uL (0-23.9); URINE WBC 6 /uL (0-25.8)
[2022-12-30 15:46] LABS: BILIRUBIN,TOTAL 2.1 mg/dL (0.2-1); TOT PROT 6.8 g/dl (6.4-8.2)
[2022-12-30 15:47] LABS: ALK PHOS 100 U/L (45-117)
[2022-12-30] MEDS ORDERED: SODIUM CHLORIDE 500 ML IV STA (15:48)
[2022-12-30 15:49] LABS: N-TERMINAL BNP 3672.8 pg/ml (5-450)
[2022-12-30 16:03] LABS: ANION GAP 11 MMOL/L (8-16)
[2022-12-30] MEDS ORDERED: MAGNESIUM SULF 50% (8.12 MEQ/2 ML-1 GM VIAL) IVPB ONE (16:10)
[2022-12-30] MEDS ORDERED: POTASSIUM CHLORIDE ORAL LIQUID 20 MEQ/15 ML PO ONE (16:11)
[2022-12-30] MEDS: KCL 10 MEQ IVPB 10 MEQ/100 ML INFUS.BAG IVPB SCH ×3 (16:15→18:05)
[2022-12-30] MEDS ORDERED: MAGNESIUM 1GM/D5W - 1 GM/100 ML IVPB IVPB ONE (16:21)
[2022-12-30] MEDS ORDERED: POTASSIUM CHLORIDE ORAL LIQUID 20 MEQ/15 ML ONE (16:21)
[2022-12-30] MEDS ORDERED: KCL 10 MEQ IVPB 30 MEQ/300 ML INFUS.BAG IVPB ONE (16:21)
[2022-12-30] MEDS ORDERED: HEPARIN NA (PORCINE) 5,000 UNITS/ML 1ML VIAL IVPUSH PRN ×2 (20:24)
[2022-12-30] MEDS ORDERED: HEPARIN NA (PORCINE) 5,000 UNITS/ML 1ML VIAL IVPUSH ONE (20:26)
[2022-12-30] MEDS ORDERED: HEPARIN SOD,PORK IN 0.45% NACL 25,000 UNIT/500 ML INFUS.BAG IVPB SCH (20:30)
[2022-12-30] MEDS ORDERED: HEPARIN NA (PORCINE) 5,000 UNITS/ML 1ML VIAL ONE (21:08)
[2022-12-31 04:16] LABS: ANION GAP 12 MMOL/L (8-16); BLOOD UREA NITROGEN 17.7 mg/dL (7-18); CALCIUM 8.9 mg/dL (8.5-10.1); CHLORIDE 84 mmol/L (98-107); CO2 39 mmol/L (21-32); GLUCOSE,RANDOM 169 mg/dL (74-106); SODIUM 135 mmol/L (136-145)
[2022-12-31] MEDS: KCL 10 MEQ IVPB 10 MEQ/100 ML INFUS.BAG IVPB SCH ×2 (05:27→07:49)
[2022-12-31 09:15] LABS: PHOSPHOROUS 2.9 mg/dL (2.5-4.9)
[2022-12-31] MEDS: CARVEDILOL 6.25 MG TABLET (FP) PO SCH ×2 (09:43→21:50)
[2022-12-31] MEDS: ROSUVASTATIN CA 10 MG TABLET PO SCH (09:43)
[2022-12-31] MEDS: FERROUS SO4 325 MG TABLET (FP) PO SCH (09:43)
[2022-12-31] MEDS ORDERED: PATIENT'S OWN MEDICATION (NON-FORMULARY) (Fluticasone Furoate [Arnuity Ellipta] 100 MCG Bl IH SCH (10:00)
[2022-12-31] MEDS ORDERED: PATIENT'S OWN MEDICATION (NON-FORMULARY) (Cyanocobalamin/Folic Acid [B12-Folic Acid 2500-4 PO SCH (10:00)
[2022-12-31] MEDS ORDERED: FUROSEMIDE 20 MG TABLET (FP) PO SCH (10:00)
[2022-12-31] MEDS ORDERED: POTASSIUM CHLORIDE TABS 20 MEQ TABLET.ER (FP) PO SCH (10:00)
[2022-12-31] MEDS: FLUTICASONE PROP 0.05% 16 GM NASAL SPRAY NS SCH (10:50)
[2022-12-31] MEDS: INSULIN SLIDING SCALE (NOVOLOG) 1 VIAL SQ SCH ×2 (11:52→16:46)
[2022-12-31] MEDS ORDERED: SODIUM CHLORIDE 250 ML IV STA (12:22)
[2022-12-31] MEDS: APIXABAN 2.5 MG TABLET PO SCH ×2 (12:48→21:50)
[2022-12-31] MEDS: SODIUM CHLORIDE 1,000 ML IV SCH (13:50)
[2022-12-31] MEDS ORDERED: PATIENT'S OWN MEDICATION (NON-FORMULARY) (Sildenafil Citrate [Sildenafil Citrate] 20 MG Ta PO SCH (14:00)
[2022-12-31 15:55] LABS: MAGNESIUM 2.1 mg/dL (1.8-2.4)
[2022-12-31] MEDS: INSULIN (LEVEMIR) 100 UNITS/ML UNITS SQ SCH (21:50)
[2023-01-01] MEDS: INSULIN SLIDING SCALE (NOVOLOG) 1 VIAL SQ SCH ×3 (06:18→16:52)
[2023-01-01] MEDS ORDERED: sitaGLIPtin PHOSPHATE 50 MG TABLET PO SCH (07:00)
[2023-01-01 07:23] LABS: BASO % 0.9 % (0-2.0); EOS % 3.8 % (0-4.5); HEMATOCRIT 25.4 % (32.4-45.2); LYMPH % 33.1 % (8-40); MCH 30.5 pg (25.7-33.7); MCHC 35.5 g/dl (32.0-36.0); MEAN CELL VOLUME 85.7 fl (80-96); MEAN PLT VOLUME 7.2 fl (7.5-11.1); MONO % 7.3 % (3.8-10.2); NEUT % 54.9 % (42.8-82.8); PLATELET COUNT 92 10^3/uL (134-434); RBC 2.97 M/mm3 (3.60-5.2); RDW 20.2 % (11.6-15.6); WHITE BLOOD COUNT 3.4 K/mm3 (4.0-10.0)
[2023-01-01 07:43] LABS: CALCIUM 8.9 mg/dL (8.5-10.1)
[2023-01-01 07:44] LABS: BLOOD UREA NITROGEN 16.6 mg/dL (7-18)
[2023-01-01 07:47] LABS: CREATININE 1.5 mg/dL (0.55-1.3)
[2023-01-01] MEDS ORDERED: POTASSIUM CHLORIDE TABS 20 MEQ TABLET.ER (FP) PO ONE (08:38)
[2023-01-01] MEDS ORDERED: POTASSIUM CHLORIDE ORAL LIQUID 20 MEQ/15 ML PO ONE ×2 (08:45→22:00)
[2023-01-01] MEDS: ROSUVASTATIN CA 10 MG TABLET PO SCH (09:10)
[2023-01-01] MEDS: FERROUS SO4 325 MG TABLET (FP) PO SCH (09:10)
[2023-01-01] MEDS: APIXABAN 2.5 MG TABLET PO SCH ×2 (09:10→23:09)
[2023-01-01] MEDS: FAMOTIDINE 10 MG TABLET PO SCH (09:12)
[2023-01-01] MEDS: KCL 10 MEQ IVPB 10 MEQ/100 ML INFUS.BAG IVPB SCH ×2 (09:15→10:21)
[2023-01-01] MEDS: CARVEDILOL 6.25 MG TABLET (FP) PO SCH ×2 (10:25→23:09)
[2023-01-01] MEDS: SODIUM CHLORIDE 1,000 ML IV SCH (12:32)
[2023-01-01] MEDS: FLUTICASONE PROP 0.05% 16 GM NASAL SPRAY NS SCH (12:47)
[2023-01-01] MEDS ORDERED: SODIUM CHLORIDE 0.9%/KCL 20 MEQ/1,000 ML INFUS.BAG IV SCH (15:17)
[2023-01-01] MEDS ORDERED: POTASSIUM PHOSPHATE 30 MM in DEXTROSE 5%-WATER - 500 ML IVPB ONE (16:00)
[2023-01-01] MEDS: ERTAPENEM SODIUM 1 GM in SODIUM CHLORIDE 50 ML IVPB ONE ×2 (17:41→17:44)
[2023-01-01] MEDS: INSULIN (LEVEMIR) 100 UNITS/ML UNITS SQ SCH (23:09)
[2023-01-02] MEDS: INSULIN SLIDING SCALE (NOVOLOG) 1 VIAL SQ SCH ×3 (06:05→16:51)
[2023-01-02 08:30] LABS: BASO % 0.5 % (0-2.0); EOS % 3.3 % (0-4.5); HEMATOCRIT 23.2 % (32.4-45.2); HEMOGLOBIN 7.9 GM/dL (10.7-15.3); LYMPH % 25.3 % (8-40); MCH 29.6 pg (25.7-33.7); MCHC 34.1 g/dl (32.0-36.0); MEAN CELL VOLUME 86.9 fl (80-96); MEAN PLT VOLUME 6.9 fl (7.5-11.1); MONO % 7.4 % (3.8-10.2); NEUT % 63.5 % (42.8-82.8); PLATELET COUNT 81 10^3/uL (134-434); RBC 2.67 M/mm3 (3.60-5.2); RDW 20.4 % (11.6-15.6); WHITE BLOOD COUNT 3.4 K/mm3 (4.0-10.0)
[2023-01-02 08:40] LABS: HEMATOCRIT 23.1 % (32.4-45.2); HEMOGLOBIN 7.8 GM/dL (10.7-15.3); MCH 29.5 pg (25.7-33.7); MCHC 33.6 g/dl (32.0-36.0); MEAN CELL VOLUME 87.5 fl (80-96); MEAN PLT VOLUME 7.1 fl (7.5-11.1); PLATELET COUNT 78 10^3/uL (134-434); RBC 2.63 M/mm3 (3.60-5.2); RDW 20.5 % (11.6-15.6); WHITE BLOOD COUNT 3.4 K/mm3 (4.0-10.0)
[2023-01-02 08:52] LABS: BLOOD UREA NITROGEN 15.6 mg/dL (7-18)
[2023-01-02 08:55] LABS: CREATININE 1.2 mg/dL (0.55-1.3); PHOSPHOROUS 2.8 mg/dL (2.5-4.9)
[2023-01-02] MEDS ORDERED: SODIUM CHLORIDE 500 ML IV STA (09:47)
[2023-01-02] MEDS: FERROUS SO4 325 MG TABLET (FP) PO SCH (10:19)
[2023-01-02] MEDS: FAMOTIDINE 10 MG TABLET PO SCH (10:19)
[2023-01-02] MEDS: APIXABAN 2.5 MG TABLET PO SCH ×2 (10:19→21:18)
[2023-01-02] MEDS: ROSUVASTATIN CA 10 MG TABLET PO SCH (10:19)
[2023-01-02] MEDS: CARVEDILOL 6.25 MG TABLET (FP) PO SCH ×2 (10:19→21:18)
[2023-01-02] MEDS: FLUTICASONE PROP 0.05% 16 GM NASAL SPRAY NS SCH (10:20)
[2023-01-02] MEDS ORDERED: ERTAPENEM SODIUM 1 GM in SODIUM CHLORIDE 50 ML IVPB ONE (11:19)
[2023-01-02 12:05] LABS: BLOOD UREA NITROGEN 15.3 mg/dL (7-18); CALCIUM 8.7 mg/dL (8.5-10.1)
[2023-01-02 12:09] LABS: CREATININE 1.2 mg/dL (0.55-1.3)
[2023-01-02] MEDS: INSULIN (LEVEMIR) 100 UNITS/ML UNITS SQ SCH (21:21)
[2023-01-03] MEDS ORDERED: INSULIN (LEVEMIR) 100 UNITS/ML UNITS SQ ONE (06:27)
[2023-01-03] MEDS: INSULIN SLIDING SCALE (NOVOLOG) 1 VIAL SQ SCH ×3 (06:28→17:04)
[2023-01-03 08:47] LABS: BASO % 0.7 % (0-2.0); EOS % 1.6 % (0-4.5); HEMATOCRIT 25.2 % (32.4-45.2); HEMOGLOBIN 8.7 GM/dL (10.7-15.3); LYMPH % 21.7 % (8-40); MCH 30.2 pg (25.7-33.7); MCHC 34.5 g/dl (32.0-36.0); MEAN CELL VOLUME 87.5 fl (80-96); MEAN PLT VOLUME 7.4 fl (7.5-11.1); MONO % 6.5 % (3.8-10.2); NEUT % 69.5 % (42.8-82.8); PLATELET COUNT 83 10^3/uL (134-434); RBC 2.88 M/mm3 (3.60-5.2); RDW 20.3 % (11.6-15.6); WHITE BLOOD COUNT 4.2 K/mm3 (4.0-10.0)
[2023-01-03 09:24] LABS: CALCIUM 8.8 mg/dL (8.5-10.1)
[2023-01-03 09:25] LABS: BLOOD UREA NITROGEN 15.7 mg/dL (7-18)
[2023-01-03 09:28] LABS: CREATININE 1.1 mg/dL (0.55-1.3)
[2023-01-03] MEDS: FAMOTIDINE 10 MG TABLET PO SCH (09:50)
[2023-01-03] MEDS: ROSUVASTATIN CA 10 MG TABLET PO SCH (09:50)
[2023-01-03] MEDS: CARVEDILOL 6.25 MG TABLET (FP) PO SCH ×2 (09:50→22:31)
[2023-01-03] MEDS: FERROUS SO4 325 MG TABLET (FP) PO SCH (09:50)
[2023-01-03] MEDS: MEROPENEM 1 GM in DEXTROSE 5%-WATER 100 ML IVPB SCH ×2 (09:50→22:31)
[2023-01-03] MEDS: APIXABAN 2.5 MG TABLET PO SCH ×2 (09:50→22:31)
[2023-01-03] MEDS: FLUTICASONE PROP 0.05% 16 GM NASAL SPRAY NS SCH (10:05)
[2023-01-03] MEDS: INSULIN (LEVEMIR) 100 UNITS/ML UNITS SQ SCH (22:30)
[2023-01-04] MEDS: INSULIN SLIDING SCALE (NOVOLOG) 1 VIAL SQ SCH ×3 (06:30→17:10)
[2023-01-04 08:24] LABS: HEMATOCRIT 26.9 % (32.4-45.2); HEMOGLOBIN 9.4 GM/dL (10.7-15.3); MCH 30.3 pg (25.7-33.7); MCHC 34.8 g/dl (32.0-36.0); MEAN CELL VOLUME 86.9 fl (80-96); PLATELET COUNT 79 10^3/uL (134-434); RBC 3.09 M/mm3 (3.60-5.2); RDW 20.3 % (11.6-15.6); WHITE BLOOD COUNT 6.1 K/mm3 (4.0-10.0)
[2023-01-04] MEDS: MEROPENEM 1 GM in DEXTROSE 5%-WATER 100 ML IVPB SCH ×2 (10:03→22:09)
[2023-01-04] MEDS: APIXABAN 2.5 MG TABLET PO SCH ×2 (10:05→22:08)
[2023-01-04] MEDS: FERROUS SO4 325 MG TABLET (FP) PO SCH (10:05)
[2023-01-04] MEDS: ROSUVASTATIN CA 10 MG TABLET PO SCH (10:05)
[2023-01-04] MEDS: FAMOTIDINE 10 MG TABLET PO SCH (10:05)
[2023-01-04] MEDS: CARVEDILOL 6.25 MG TABLET (FP) PO SCH ×2 (10:07→22:08)
[2023-01-04] MEDS: FLUTICASONE PROP 0.05% 16 GM NASAL SPRAY NS SCH (10:10)
[2023-01-04] MEDS: SODIUM CHLORIDE 1,000 ML IV SCH (12:17)
[2023-01-04] MEDS: INSULIN (LEVEMIR) 100 UNITS/ML UNITS SQ SCH (22:09)
[2023-01-05] MEDS: INSULIN SLIDING SCALE (NOVOLOG) 1 VIAL SQ SCH ×3 (06:24→17:50)
[2023-01-05 07:49] LABS: BASO % 0.5 % (0-2.0); HEMOGLOBIN 8.4 GM/dL (10.7-15.3); MCH 30.3 pg (25.7-33.7); MEAN CELL VOLUME 86.6 fl (80-96); MEAN PLT VOLUME 7.6 fl (7.5-11.1); MONO % 8.9 % (3.8-10.2); NEUT % 67.6 % (42.8-82.8); PLATELET COUNT 69 10^3/uL (134-434); RBC 2.78 M/mm3 (3.60-5.2); RDW 20.1 % (11.6-15.6); WHITE BLOOD COUNT 4.1 K/mm3 (4.0-10.0)
[2023-01-05 08:56] LABS: CALCIUM 8.6 mg/dL (8.5-10.1)
[2023-01-05 08:57] LABS: BLOOD UREA NITROGEN 21.8 mg/dL (7-18)
[2023-01-05 09:00] LABS: CREATININE 1.2 mg/dL (0.55-1.3)
[2023-01-05 09:01] LABS: TOT PROT 4.9 g/dl (6.4-8.2)
[2023-01-05 09:02] LABS: BILIRUBIN,TOTAL 1.2 mg/dL (0.2-1)
[2023-01-05 09:06] LABS: ALBUMIN 1.9 g/dl (3.4-5.0)
[2023-01-05] MEDS: MEROPENEM 1 GM in DEXTROSE 5%-WATER 100 ML IVPB SCH ×2 (09:27→21:37)
[2023-01-05] MEDS: FAMOTIDINE 10 MG TABLET PO SCH (09:28)
[2023-01-05] MEDS: FERROUS SO4 325 MG TABLET (FP) PO SCH (09:28)
[2023-01-05] MEDS: CARVEDILOL 6.25 MG TABLET (FP) PO SCH ×2 (09:28→21:34)
[2023-01-05] MEDS: APIXABAN 2.5 MG TABLET PO SCH ×2 (09:28→21:34)
[2023-01-05] MEDS: ROSUVASTATIN CA 10 MG TABLET PO SCH (09:29)
[2023-01-05] MEDS: FLUTICASONE PROP 0.05% 16 GM NASAL SPRAY NS SCH (11:22)
[2023-01-05] MEDS: SODIUM CHLORIDE 1,000 ML IV SCH (17:12)
[2023-01-05] MEDS: INSULIN (LEVEMIR) 100 UNITS/ML UNITS SQ SCH (21:39)
[2023-01-06] MEDS: INSULIN SLIDING SCALE (NOVOLOG) 1 VIAL SQ SCH ×3 (06:24→16:37)
[2023-01-06] MEDS ORDERED: DEXTROSE 50%-WATER - 25 GM/50 ML VIAL IVPUSH ONE (06:32)
[2023-01-06] MEDS ORDERED: DEXTROSE 50%-WATER 25 GM/50 ML DISP.SYRIN ONE (06:45)
[2023-01-06] MEDS: APIXABAN 2.5 MG TABLET PO SCH (09:06)
[2023-01-06] MEDS: FAMOTIDINE 10 MG TABLET PO SCH (09:06)
[2023-01-06] MEDS: ROSUVASTATIN CA 10 MG TABLET PO SCH (09:06)
[2023-01-06] MEDS: MEROPENEM 1 GM in DEXTROSE 5%-WATER 100 ML IVPB SCH ×2 (09:06→21:38)
[2023-01-06] MEDS: CARVEDILOL 6.25 MG TABLET (FP) PO SCH ×2 (09:06→21:36)
[2023-01-06] MEDS: FERROUS SO4 325 MG TABLET (FP) PO SCH (09:06)
[2023-01-06] MEDS: FLUTICASONE PROP 0.05% 16 GM NASAL SPRAY NS SCH (09:07)
[2023-01-06 13:08] LABS: BASO % 0.5 % (0-2.0); EOS % 1.9 % (0-4.5); HEMATOCRIT 24.2 % (32.4-45.2); HEMOGLOBIN 8.3 GM/dL (10.7-15.3); LYMPH % 19.4 % (8-40); MCHC 34.4 g/dl (32.0-36.0); MEAN CELL VOLUME 87.1 fl (80-96); MEAN PLT VOLUME 7.3 fl (7.5-11.1); MONO % 9.4 % (3.8-10.2); NEUT % 68.8 % (42.8-82.8); PLATELET COUNT 83 10^3/uL (134-434); RBC 2.78 M/mm3 (3.60-5.2); WHITE BLOOD COUNT 3.7 K/mm3 (4.0-10.0)
[2023-01-06 13:17] LABS: CALCIUM 8.5 mg/dL (8.5-10.1)
[2023-01-06] MEDS: SODIUM CHLORIDE 1,000 ML IV SCH (19:31)
[2023-01-06] MEDS: INSULIN (LEVEMIR) 100 UNITS/ML UNITS SQ SCH (21:37)
[2023-01-07] MEDS: INSULIN SLIDING SCALE (NOVOLOG) 1 VIAL SQ SCH ×3 (06:13→16:44)
[2023-01-07] MEDS: SODIUM CHLORIDE 1,000 ML IV SCH ×2 (06:14→11:58)
[2023-01-07] MEDS: FAMOTIDINE 10 MG TABLET PO SCH (09:16)
[2023-01-07] MEDS: CARVEDILOL 6.25 MG TABLET (FP) PO SCH ×2 (09:16→21:31)
[2023-01-07] MEDS: ROSUVASTATIN CA 10 MG TABLET PO SCH (09:16)
[2023-01-07] MEDS: FERROUS SO4 325 MG TABLET (FP) PO SCH (09:16)
[2023-01-07] MEDS: FLUTICASONE PROP 0.05% 16 GM NASAL SPRAY NS SCH (09:17)
[2023-01-07] MEDS: MEROPENEM 1 GM in DEXTROSE 5%-WATER 100 ML IVPB SCH (09:17)
[2023-01-07] MEDS: INSULIN (LEVEMIR) 100 UNITS/ML UNITS SQ SCH (21:31)
[2023-01-08] MEDS: SODIUM CHLORIDE 1,000 ML IV SCH (06:03)
[2023-01-08] MEDS: INSULIN SLIDING SCALE (NOVOLOG) 1 VIAL SQ SCH ×3 (06:29→16:17)
[2023-01-08] MEDS ORDERED: APIXABAN 2.5 MG TABLET PO SCH (10:00)
[2023-01-08 10:26] LABS: BASO % 0.9 % (0-2.0); EOS % 1.7 % (0-4.5); HEMATOCRIT 26.4 % (32.4-45.2); HEMOGLOBIN 8.9 GM/dL (10.7-15.3); LYMPH % 22.8 % (8-40); MCH 29.3 pg (25.7-33.7); MCHC 33.6 g/dl (32.0-36.0); MEAN CELL VOLUME 87.4 fl (80-96); MEAN PLT VOLUME 6.8 fl (7.5-11.1); MONO % 7.1 % (3.8-10.2); NEUT % 67.5 % (42.8-82.8); PLATELET COUNT 110 10^3/uL (134-434); RBC 3.02 M/mm3 (3.60-5.2); RDW 20.1 % (11.6-15.6); WHITE BLOOD COUNT 3.8 K/mm3 (4.0-10.0)
[2023-01-08 10:45] LABS: BLOOD UREA NITROGEN 17.2 mg/dL (7-18); CALCIUM 8.5 mg/dL (8.5-10.1)
[2023-01-08 10:49] LABS: CREATININE 0.9 mg/dL (0.55-1.3)
[2023-01-08] MEDS: FLUTICASONE PROP 0.05% 16 GM NASAL SPRAY NS SCH (11:15)
[2023-01-08] MEDS: PANTOPRAZOLE 20 MG TABLET PO SCH ×2 (11:15→21:23)
[2023-01-08] MEDS: FERROUS SO4 325 MG TABLET (FP) PO SCH (11:15)
[2023-01-08] MEDS: CARVEDILOL 6.25 MG TABLET (FP) PO SCH ×3 (11:15→21:23)
[2023-01-08] MEDS: ROSUVASTATIN CA 10 MG TABLET PO SCH (11:15)
[2023-01-08] MEDS: INSULIN (LEVEMIR) 100 UNITS/ML UNITS SQ SCH (21:23)
[2023-01-09] MEDS: INSULIN SLIDING SCALE (NOVOLOG) 1 VIAL SQ SCH ×3 (06:15→16:42)
[2023-01-09] MEDS: PANTOPRAZOLE 20 MG TABLET PO SCH ×2 (09:14→21:41)
[2023-01-09] MEDS: ROSUVASTATIN CA 10 MG TABLET PO SCH (09:14)
[2023-01-09] MEDS: FERROUS SO4 325 MG TABLET (FP) PO SCH (09:15)
[2023-01-09] MEDS: FLUTICASONE PROP 0.05% 16 GM NASAL SPRAY NS SCH (09:15)
[2023-01-09] MEDS: CARVEDILOL 6.25 MG TABLET (FP) PO SCH ×2 (09:15→21:41)
[2023-01-09] MEDS: INSULIN (LEVEMIR) 100 UNITS/ML UNITS SQ SCH (21:45)
[2023-01-10] MEDS: INSULIN SLIDING SCALE (NOVOLOG) 1 VIAL SQ SCH ×3 (06:11→16:50)
[2023-01-10] MEDS: CARVEDILOL 6.25 MG TABLET (FP) PO SCH ×2 (10:14→21:51)
[2023-01-10] MEDS: FLUTICASONE PROP 0.05% 16 GM NASAL SPRAY NS SCH (10:14)
[2023-01-10] MEDS: ROSUVASTATIN CA 10 MG TABLET PO SCH (10:14)
[2023-01-10] MEDS: PANTOPRAZOLE 20 MG TABLET PO SCH ×2 (10:14→21:51)
[2023-01-10] MEDS: FERROUS SO4 325 MG TABLET (FP) PO SCH (10:14)
[2023-01-10] MEDS: INSULIN (LEVEMIR) 100 UNITS/ML UNITS SQ SCH (21:58)
[2023-01-11] MEDS: INSULIN SLIDING SCALE (NOVOLOG) 1 VIAL SQ SCH ×3 (06:22→17:21)
[2023-01-11 09:58] VITALS: RESP 20
[2023-01-11] MEDS: ROSUVASTATIN CA 10 MG TABLET PO SCH (10:29)
[2023-01-11] MEDS: FLUTICASONE PROP 0.05% 16 GM NASAL SPRAY NS SCH (10:30)
[2023-01-11] MEDS: PANTOPRAZOLE 20 MG TABLET PO SCH (10:30)
[2023-01-11] MEDS: FERROUS SO4 325 MG TABLET (FP) PO SCH (10:30)
[2023-01-11] MEDS: CARVEDILOL 6.25 MG TABLET (FP) PO SCH (10:30)
[2023-01-11 16:02] VITALS: BMI 23.8
[2023-01-11 18:15] VITALS: PULSE 67
[2023-01-11 18:41] VITALS: BP 108/47; TEMP 98.8
== END 2023-01-11 18:48 | DRG 309 ==
LOC: JER 13:23 → JERBED 16:17 → J4S 21:37
PROVIDERS: ADMIT Internal Medicine; ATTEND Internal Medicine
DX: I48.0 Paroxysmal atrial fibrillation (principal); D61.818 Other pancytopenia; I50.32 Chronic diastolic (congestive) heart failure; K86.2 Cyst of pancreas; N17.9 Acute kidney failure, unspecified; N39.0 Urinary tract infection, site not specified; I31.39 Other pericardial effusion (noninflammatory); I13.0 Hypertensive heart and chronic kidney disease with heart failure and stage 1 through stage 4 chronic kidney disease, or unspecified chronic kidney disease; E87.1 Hypo-osmolality and hyponatremia; I25.10 Atherosclerotic heart disease of native coronary artery without angina pectoris; I27.20 Pulmonary hypertension, unspecified; D64.9 Anemia, unspecified; F03.90 Unspecified dementia, unspecified severity, without behavioral disturbance, psychotic disturbance, mood disturbance, and anxiety; K21.9 Gastro-esophageal reflux disease without esophagitis; H54.8 Legal blindness, as defined in USA; Z79.84 Long term (current) use of oral hypoglycemic drugs; E87.6 Hypokalemia; Z99.81 Dependence on supplemental oxygen; R77.8 Other specified abnormalities of plasma proteins; N18.9 Chronic kidney disease, unspecified; E11.22 Type 2 diabetes mellitus with diabetic chronic kidney disease; R62.7 Adult failure to thrive; Z68.23 Body mass index [BMI] 23.0-23.9, adult; B96.20 Unspecified Escherichia coli [E. coli] as the cause of diseases classified elsewhere
CPT/HCPCS: 0241U-QW; 36415; 70450-TC; 71045-TC-FY; 76705-TC; 80048; 80053; 81003; 82272; 82607; 82962; 83036; 83735; 83880; 84100; 84443; 84484; 85025; 85027; 85379; 85610; 85730; 86850; 86870; 86900; 86901; 86902; 87086; 87186; 93005; 93010; 93306-TC; 93970-TC; 97116-GP; 97161-GP; 99285-25; C9803-CS; J1644; U0003; U0005